=== PATIENT | female | born 1945 | race Caucasian/White ===

== ENCOUNTER → 2018-10-27 | Day surgery (SDC) | payer MEDICARE ==
[~2018-10-27] MED LIST: Acetaminophen/HYDROcodone 325-5 MG Tab PO PRN; Lactated Ringers 1,000 ML IV SCH; Midazolam 1 MG/ML 2 ML SDV ONE; Propofol 200 MG/20 ML SDV ONE; ceFAZolin 1 GM Vial ONE; ceFAZolin 1 GM in Sodium Chloride 0.9% 50 ML IV ONE; fentaNYL 100 MCG/2 ML SDV ONE
[2018-10-27 12:46] VITALS: BP 126/59
--- NOTE | 2018-10-28 07:33 | OR ---
DATE OF OPERATION: 10/27/2018 PREOPERATIVE DIAGNOSIS: Left carpal tunnel syndrome. POSTOPERATIVE DIAGNOSIS: Left carpal tunnel syndrome. PROCEDURE: Left carpal tunnel release. ANESTHESIA: [place] block. SURGEON: Charlie Elkins MD E TAILER: Christo Reddy RN. SPECIMENS: None. DRAINS: None. ESTIMATED BLOOD LOSS: Minimal. COMPLICATIONS: None apparent. DESCRIPTION OF PROCEDURE: After informed consent was obtained. The patient was brought to the operating room, where a Lauren block was performed uneventfully. The left upper extremity was prepped and draped sterilely. A time-out was held and the antibiotics were confirmed. An incision was made in line with the radial border of the ring finger from a line starting at Marie cardinal line to the volar wrist crease. We dissected sharply through the skin and subcutaneous tissue and palmar aponeurosis down onto the transverse carpal ligament. This was released in its entirety just off the radial border of hook of hamate. Distal aspect of the volar antebrachial fascia was released with tenotomies. We inspected the median nerve and the motor branch was intact and there were no space-occupying lesions. The incision was closed with #4-0 nylon, and sterile dressings were applied. KATHRINE/CONNER /[id number]
== END ==
LOC: LB.SDS 07:30
PROVIDERS: ATTEND Orthopaedic Surgery
DX: G56.02 Carpal tunnel syndrome, left upper limb (principal); I25.10 Atherosclerotic heart disease of native coronary artery without angina pectoris; I12.9 Hypertensive chronic kidney disease with stage 1 through stage 4 chronic kidney disease, or unspecified chronic kidney disease; E11.22 Type 2 diabetes mellitus with diabetic chronic kidney disease; N18.3 Chronic kidney disease, stage 3 (moderate); E11.3299 Type 2 diabetes mellitus with mild nonproliferative diabetic retinopathy without macular edema, unspecified eye; E03.9 Hypothyroidism, unspecified; E04.2 Nontoxic multinodular goiter; K21.9 Gastro-esophageal reflux disease without esophagitis; G25.81 Restless legs syndrome; G89.29 Other chronic pain; M54.5 Low back pain; M40.204 Unspecified kyphosis, thoracic region; E66.01 Morbid (severe) obesity due to excess calories; Z68.41 Body mass index [BMI] 40.0-44.9, adult; Z87.891 Personal history of nicotine dependence; Z79.82 Long term (current) use of aspirin; Z79.4 Long term (current) use of insulin; Z79.899 Other long term (current) drug therapy
CPT/HCPCS: 82962; J2250; J2704; J3010; J7120

== ENCOUNTER 2018-12-15 13:38 | Inpatient (IN) | payer MEDICARE ==
[2018-12-15] MEDS ORDERED: Acetaminophen 325 MG Tab PO PRN (15:23)
[2018-12-15] MEDS ORDERED: Insulin Aspart 100 Units/ML 3 ML Pen SUBCUT SCH (18:00)
[2018-12-15] MEDS: Insulin Aspart 100 Units/ML 3 ML Pen SUBCUT SCH (18:42)
[2018-12-15] MEDS ORDERED: Insulin Aspart 100 Units/ML 3 ML Pen SUBCUT ONE (18:45)
--- NOTE | 2018-12-15 19:02 | PCM.HP ---
H&P History of Present Illness - General Date of Service: 12/15/18 Admit Problem/Dx: Admission Diagnosis/Problem Admission Diagnosis/Problem Foot infection Source of Information: Patient, RN, Other (discharge orders and notes from [facility] [place]) History Limitations: Reports: No Limitations - History of Present Illness Initial Comments - Free Text/Narative: 73 yr female presents to [facility] program, S/P 5th toe metatarsal amputation and diabetic wound infection ( right lateral foot ulcer and gangrenous changes pre-op note), diabetes and high dose insulin, hypertension, hypothyroid, iron deficiency anemia, chronic pain and taking Methadone, and renal insufficiency. Pt had surgery last week and was discharged today to [facility]. She does have a dressing to the foot and drainage intact and will need daily dressing changes, PT and OT referral for evaluation and strengthening. Pt is alert and talkative and happy to be in home community. She is diabetic and is taking Levemir bid and short acting insulin tid. Diet for consistent carbohydrate, low sodium, and heart healthy diet. Orders for non- weight bearing, daily dressing change, (triple antibiotic, adaptic, gauze, kerlex, and THANG), drain intact and Tylenol for relief of pain and Levaquin for the wound infection. She is sitting in the wheelchair and elevating her leg at night. Return appointment, need to schedule within 7 days. Right Toe-Little Pain Score (Numeric/FACES): 0 - Related Data Allergies/Adverse Reactions: Allergies Allergy/AdvReac Type Severity Reaction Status Date / Time morphine [From MS Contin] Allergy Nausea and Verified 10/27/18 02:51 Vomiting sulfamethoxazole Allergy Other Verified 10/27/18 02:51 [From Septra] trimethoprim [From Febra] Allergy Other Verified 10/27/18 02:51 Home Medications: Home Meds Levothyroxine Sodium [Synthroid] 75 mcg PO ACBREAKFAST 11/15/14 [History] Insulin Aspart [NovoLOG] 60 unit SUBCUT TIDAC 03/21/15 [History] Insulin Detemir [Levemir Flextouch] 65 unit SQ BID 03/21/15 [History] Methadone HCl [Dolophine HCl] 10 mg PO BID 03/21/15 [History] Multivitamin [Multi-Vitamin Daily] 1 tab PO DAILY 03/21/15 [History] Calcium Carbonate/Vitamin D3 [Calcium 600 + Vit D Tablet] 1 each PO DAILY [History] Cholecalciferol (Vitamin D3) [Vitamin D3] 1,000 unit PO DAILY 10/27/18 [History] Furosemide 20 mg PO DAILY 10/27/18 [History] Losartan Potassium [Cozaar] 100 mg PO DAILY 10/27/18 [History] Methadone 5 mg PO DAILY 10/27/18 [History] amLODIPine [Norvasc] 5 mg PO DAILY 10/27/18 [History] Aspirin 81 mg PO DAILY 12/15/18 [History] Past Medical History HEENT History: Reports: Cataract, Macular Degeneration Other HEENT History: Diabetic eye problems Cardiovascular History: Reports: Hypertension Other Respiratory History: Cough Gastrointestinal History: Reports: None Other Genitourinary History: Chronic Renal Disease, Stage 3 Other OB/BYN History: 2 Musculoskeletal History: Reports: Amputation, Back Pain, Chronic, Osteoarthritis Other Musculoskeletal History: osteoarthritis in hands Endocrine/Metabolic History: Reports: Diabetes, Type II, Obesity/BMI 30+ Other Hematologic History: Familial Hyperlipidemia Other Immunologic History: sjogrens syndrome Other Dermatologic History: bruises easily - Infectious Disease History Infectious Disease History: Reports: Chicken Pox, Measles, Rubella - Past Surgical History HEENT Surgical History: Reports: Cataract Surgery Other HEENT Surgeries/Procedures: intravitreal injections Musculoskeletal Surgical History: Reports: Shoulder Surgery Other Musculoskeletal Surgeries/Procedures:: Trigger Finger Repair Social & Family History - Family History Family Medical History: Noncontributory - Caffeine Use Caffeine Use: Reports: Coffee, Soda, Tea H&P Review of Systems - Review of Systems: Review Of Systems: See Below General: Reports: No Symptoms HEENT: Reports: Glasses, Headaches (some occasional headache, refuses Tylenol at this time.) Pulmonary: Reports: No Symptoms Cardiovascular: Reports: No Symptoms Gastrointestinal: Reports: Constipation, Other (No BM since Saturday.). Denies: Abdominal Pain, Decreased Appetite, Nausea Genitourinary: Reports: No Symptoms Musculoskeletal: Reports: Other (States no pain to right foot.) Skin: Reports: Other (Dressing and thang wrap to right foot and lower leg, drain to foot) Psychiatric: Reports: Other (States some frustration with her condition.) Neurological: Reports: No Symptoms Exam - Exam Exam: See Below - Vital Signs Vital Signs: Last Vital Signs Temp 98.4 F 12/15/18 17:00 Pulse 73 12/15/18 17:00 Resp 16 12/15/18 17:00 BP 173/66 H 12/15/18 17:00 Pulse Ox 100 12/15/18 17:00 Weight: 210 lb 14.4 oz - Exam General: Alert, Oriented, Cooperative HEENT: Hearing Intact, Mucosa Moist & [place], Nares Patent, Pupils Equal Neck: Supple, Trachea Midline Lungs: Clear to Auscultation, Normal Respiratory Effort Cardiovascular: Regular Rate, Regular Rhythm GI/Abdominal Exam: Normal Bowel Sounds, Soft, Non-Tender (Female) Exam: Deferred Rectal (Female) Exam: Deferred Back Exam: Normal Inspection, Full Range of Motion Extremities: Other (Slight edema to lower extremities, nonpitting.). No: Leg Pain Peripheral Pulses: 2+: Dorsalis Pedis (L), Dorsalis Pedis (R) Skin: Warm, Dry, Other (Dressing intact to right foot and lower leg) Neuro Extensive - Mental Status: Alert, Oriented x3, Normal Mood/Affect, Normal Cognition Neuro Extensive - Motor, Sensory, Reflexes: Other (Uses wheelchair and is non weight bearing to right lower extremity) Psychiatric: Alert, Normal Affect, Normal Mood - Patient Data Lab Results Last 24 hrs: Laboratory Results - last 24 hr 12/15/18 Range/Units 16:17 POC Glucose 81 (74-110) mg/dL - Problem List (1) Foot infection SNOMED Code(s): 848614050 ICD Code: L08.9 - LOCAL INFECTION OF THE SKIN AND SUBCUTANEOUS TISSUE, UNSP Status: Acute Current Visit: Yes (2) Diabetes SNOMED Code(s): 00989647 ICD Code: E11.9 - TYPE 2 DIABETES MELLITUS WITHOUT COMPLICATIONS Status: Acute Current Visit: Yes (3) Weakness SNOMED Code(s): 16602318 ICD Code: R53.1 - WEAKNESS Status: Acute Current Visit: Yes Problem List Initiated/Reviewed/Updated: Yes Orders Last 24hrs: Active Orders 24 hr Category Date Time Status Patient Status [ADT] Routine ADT 12/15/18 15:06 Active Blood Glucose Check, Bedside [RC] QIDACANDBED Care 12/15/18 15:06 Active Dressing Change [Wound Care] [RC] DAILY Care 12/16/18 08:00 Active Oxygen Therapy [RC] PRN Care 12/15/18 15:06 Inactive Up With Assistance [RC] ASDIRECTED Care 12/15/18 15:06 Active VTE/DVT Education [RC] Per Unit Routine Care 12/15/18 15:06 Active Vital Signs [RC] PER UNIT ROUTINE Care 12/15/18 15:06 Active OT Evaluation and Treatment [CONS] Routine Cons 12/15/18 15:06 Active PT Evaluation and Treatment [CONS] Routine Cons 12/15/18 15:06 Active Consistent Carbohydrate Diet [DIET] Diet 12/15/18 Dinner Ordered Heart Healthy Diet [DIET] Diet 12/15/18 Dinner Ordered Low Sodium [Sodium Restricted Diet] [DIET] Diet 12/15/18 Dinner Ordered Acetaminophen [Tylenol] Med 12/15/18 15:23 Active 650 mg PO Q6H PRN Aspirin Med 12/16/18 08:00 Active 81 mg PO DAILY Bacitracin/Neomycin/Polymyxin [Triple Antibiotic Oint] Med 12/16/18 08:00 Active 1 each TOP DAILY Calcium Carbonate/Vitamin D3 [Caltrate 600+D 1500 MG- Med 12/16/18 07:00 Active 400 Units] 2 tab PO WITHBREAKFAST Cholecalciferol (Vitamin D3) [Vitamin D3] Med 12/16/18 08:00 Active 1,000 units PO DAILY Furosemide [Lasix] Med 12/16/18 08:00 Active 20 mg PO DAILY Insulin Aspart [NovoLOG] Med 12/15/18 18:30 Active 25 unit SUBCUT TIDMEALS Insulin Detemir [Levemir] Med 12/15/18 20:00 Active 65 unit SUBCUT BID Levothyroxine Med 12/16/18 07:00 Active 75 mcg PO ACBREAKFAST Losartan [Cozaar] Med 12/16/18 08:00 Active 100 mg PO DAILY Methadone Med 12/15/18 20:00 Active 10 mg PO BID Methadone Med 12/16/18 12:00 Active 5 mg PO DAILY@1200 Multivitamins w-Iron/Ca/FA/Min [Thera M Plus] Med 12/16/18 08:00 Active 1 tab PO DAILY amLODIPine [Norvasc] Med 12/16/18 08:00 Active 5 mg PO DAILY levoFLOXacin [Levaquin] Med 12/16/18 08:00 Active 500 mg PO DAILY Resuscitation Status Routine Resus Stat 12/15/18 15:06 Ordered Medication Orders Acetaminophen (Tylenol) 650 mg PO Q6H PRN PRN Reason: MILD Pain Amlodipine Besylate (Norvasc) 5 mg PO DAILY [facility] Aspirin (Aspirin) 81 mg PO DAILY [facility] Calcium Carbonate (Caltrate 600+D 1500 Mg-400 Units) 2 tab PO WITHBREAKFAST [facility] Cholecalciferol (Vitamin D3) 1,000 units PO DAILY [facility] Furosemide (Lasix) 20 mg PO DAILY [facility] Insulin Aspart (Novolog) 25 unit SUBCUT TIDMEALS [facility] Last Admin: 12/15/18 18:42 Dose: 25 units Insulin Detemir (Levemir) 65 unit SUBCUT BID [facility] Levofloxacin (Levaquin) 500 mg PO DAILY [facility] Stop: 12/29/18 08:01 Levothyroxine Sodium (Levothyroxine) 75 mcg PO ACBREAKFAST [facility] Losartan Potassium (Cozaar) 100 mg PO DAILY [facility] Methadone HCl (Methadone) 10 mg PO BID [facility] Methadone HCl (Methadone) 5 mg PO DAILY@1200 [facility] Multivitamins/Minerals (Thera M Plus) 1 tab PO DAILY [facility] Neomycin/Polymyxin/Bacitracin (Triple Antibiotic Oint) 1 each TOP DAILY [facility] Assessment/Plan Comment:: Admit with right foot infection, post op from Saturday, December 12, 2018, surgeon, Dr Harvey, podiatry. Pt does have diabetes and is taking Levemir and short acting insulin tid ac. Dry, dressing intact and drainage intact to right foot. Pt is non-weight bearing to the right foot and using the wheelchair to move from the bed to the bathroom. Daily dressing change to right foot: (J/P drain, triple antibiotic oint, adaptic, gauze, kerlix and Thang) Keep foot elevated. Levaquin PO daily. TID AC and hs blood glucose. Insulin as prescribed. Diet for consistent carbohydrate, low sodium, and heart healthy. PT and OT to evaluate and treat.
[2018-12-15] MEDS: Methadone 10 MG Tab PO SCH (20:02)
[2018-12-15] MEDS: Insulin Detemir 100 Units/ML 3 ML Pen SUBCUT SCH (21:24)
[2018-12-16] MEDS: Calcium Carbonate/Vitamin D3 1500 MG-400 Units Tab PO SCH (06:16)
[2018-12-16] MEDS: Levothyroxine 75 MCG Tab PO SCH (06:16)
[2018-12-16] MEDS: Multivitamins with Iron/Calcium/Folic Acid/Minerals Tab PO SCH (07:32)
[2018-12-16] MEDS: Levofloxacin 500 MG Tab PO SCH (07:32)
[2018-12-16] MEDS: Furosemide 20 MG Tab PO SCH (07:32)
[2018-12-16] MEDS: Cholecalciferol (Vitamin D3) 25 MCG Tab PO SCH (07:32)
[2018-12-16] MEDS: Bacitracin/Neomycin/Polymyxin B Oint 0.9 GM U/D Packet TOP SCH (07:32)
[2018-12-16] MEDS: Aspirin 81 MG Tab.Chew PO SCH (07:32)
[2018-12-16] MEDS: Losartan 50 MG Tab PO SCH (07:32)
[2018-12-16] MEDS: amLODIPine 5 MG Tab PO SCH (07:32)
[2018-12-16] MEDS: Methadone 10 MG Tab PO SCH ×3 (07:33→20:11)
[2018-12-16] MEDS ORDERED: Non-Formulary Medication 1 Each (Calcium Carbonate/Vitamin D3 [Calcium 600 + Vit D Tablet] PO SCH (08:00)
[2018-12-16] MEDS ORDERED: Non-Formulary Medication 1 Each (Multivitamin [Multi-Vitamin Daily] 1 TAB) PO SCH (08:00)
[2018-12-16] MEDS ORDERED: Non-Formulary Medication 1 Each (Losartan Potassium [Cozaar] 100 MG) PO SCH (08:00)
[2018-12-16] MEDS ORDERED: Non-Formulary Medication 1 Each (Cholecalciferol (Vitamin D3) [Vitamin D3] 1,000 UNIT) PO SCH (08:00)
[2018-12-16] MEDS: Insulin Detemir 100 Units/ML 3 ML Pen SUBCUT SCH ×2 (08:09→21:16)
[2018-12-16] MEDS: Insulin Aspart 100 Units/ML 3 ML Pen SUBCUT SCH ×3 (09:10→17:30)
[2018-12-16] MEDS ORDERED: Tuberculin, PPD 5 Units/0.1 ML 1 ML MDV IDERM ONE (11:12)
[2018-12-16] MEDS ORDERED: METHADONE 5 MG PO SCH (12:00)
[2018-12-16] MEDS: Insulin Aspart 100 Units/ML 3 ML Pen SUBCUT PRN (12:21)
[2018-12-17] MEDS: Levothyroxine 75 MCG Tab PO SCH (06:26)
[2018-12-17] MEDS: Calcium Carbonate/Vitamin D3 1500 MG-400 Units Tab PO SCH (06:27)
[2018-12-17] MEDS ORDERED: Losartan 50 MG Tab ONE (07:38)
[2018-12-17] MEDS: Aspirin 81 MG Tab.Chew PO SCH (07:45)
[2018-12-17] MEDS: Losartan 50 MG Tab PO SCH (07:45)
[2018-12-17] MEDS: Furosemide 20 MG Tab PO SCH (07:45)
[2018-12-17] MEDS: Methadone 10 MG Tab PO SCH ×3 (07:46→20:21)
[2018-12-17] MEDS: Levofloxacin 500 MG Tab PO SCH (07:46)
[2018-12-17] MEDS: Cholecalciferol (Vitamin D3) 25 MCG Tab PO SCH (07:47)
[2018-12-17] MEDS: amLODIPine 5 MG Tab PO SCH (07:47)
[2018-12-17] MEDS: Multivitamins with Iron/Calcium/Folic Acid/Minerals Tab PO SCH (07:47)
[2018-12-17] MEDS: Insulin Detemir 100 Units/ML 3 ML Pen SUBCUT SCH ×2 (08:03→21:47)
[2018-12-17] MEDS: Insulin Aspart 100 Units/ML 3 ML Pen SUBCUT SCH ×5 (08:06→17:24)
[2018-12-17] MEDS: Insulin Aspart 100 Units/ML 3 ML Pen SUBCUT PRN (08:07)
[2018-12-17] MEDS: Bacitracin/Neomycin/Polymyxin B Oint 0.9 GM U/D Packet TOP SCH (10:03)
[2018-12-18] MEDS: Levothyroxine 75 MCG Tab PO SCH (06:18)
[2018-12-18] MEDS: Aspirin 81 MG Tab.Chew PO SCH (08:39)
[2018-12-18] MEDS: Calcium Carbonate/Vitamin D3 1500 MG-400 Units Tab PO SCH (08:40)
[2018-12-18] MEDS: Losartan 50 MG Tab PO SCH (08:41)
[2018-12-18] MEDS: Furosemide 20 MG Tab PO SCH (08:41)
[2018-12-18] MEDS: Levofloxacin 500 MG Tab PO SCH (08:42)
[2018-12-18] MEDS: Methadone 10 MG Tab PO SCH ×3 (08:42→22:01)
[2018-12-18] MEDS: amLODIPine 5 MG Tab PO SCH (08:43)
[2018-12-18] MEDS: Cholecalciferol (Vitamin D3) 25 MCG Tab PO SCH (08:44)
[2018-12-18] MEDS: Multivitamins with Iron/Calcium/Folic Acid/Minerals Tab PO SCH (08:44)
[2018-12-18] MEDS: Insulin Aspart 100 Units/ML 3 ML Pen SUBCUT SCH ×6 (08:45→18:00)
[2018-12-18] MEDS: Insulin Detemir 100 Units/ML 3 ML Pen SUBCUT SCH ×2 (08:46→21:57)
[2018-12-18] MEDS: Bacitracin/Neomycin/Polymyxin B Oint 0.9 GM U/D Packet TOP SCH (10:30)
[2018-12-19] MEDS: Insulin Detemir 100 Units/ML 3 ML Pen SUBCUT SCH ×2 (08:49→20:07)
[2018-12-19] MEDS: Insulin Aspart 100 Units/ML 3 ML Pen SUBCUT SCH ×6 (08:52→17:24)
[2018-12-19] MEDS: Methadone 10 MG Tab PO SCH ×3 (08:56→20:08)
[2018-12-19] MEDS: Multivitamins with Iron/Calcium/Folic Acid/Minerals Tab PO SCH (08:57)
[2018-12-19] MEDS: amLODIPine 5 MG Tab PO SCH (08:57)
[2018-12-19] MEDS: Levofloxacin 500 MG Tab PO SCH (08:58)
[2018-12-19] MEDS: Losartan 50 MG Tab PO SCH (08:58)
[2018-12-19] MEDS: Aspirin 81 MG Tab.Chew PO SCH (08:58)
[2018-12-19] MEDS: Calcium Carbonate/Vitamin D3 1500 MG-400 Units Tab PO SCH (08:58)
[2018-12-19] MEDS: Cholecalciferol (Vitamin D3) 25 MCG Tab PO SCH (08:58)
[2018-12-19] MEDS: Levothyroxine 75 MCG Tab PO SCH (08:59)
[2018-12-19] MEDS: Furosemide 20 MG Tab PO SCH (08:59)
[2018-12-19] MEDS: Bacitracin/Neomycin/Polymyxin B Oint 0.9 GM U/D Packet TOP SCH (09:00)
[2018-12-19] MEDS ORDERED: Loperamide 2 MG Cap PO ONE (09:45)
[2018-12-20] MEDS: Levothyroxine 75 MCG Tab PO SCH (06:43)
[2018-12-20] MEDS: amLODIPine 5 MG Tab PO SCH (09:42)
[2018-12-20] MEDS: Bacitracin/Neomycin/Polymyxin B Oint 0.9 GM U/D Packet TOP SCH (09:42)
[2018-12-20] MEDS: Losartan 50 MG Tab PO SCH (09:43)
[2018-12-20] MEDS: Methadone 10 MG Tab PO SCH ×3 (09:43→19:57)
[2018-12-20] MEDS: Multivitamins with Iron/Calcium/Folic Acid/Minerals Tab PO SCH (09:43)
[2018-12-20] MEDS: Cholecalciferol (Vitamin D3) 25 MCG Tab PO SCH (09:43)
[2018-12-20] MEDS: Levofloxacin 500 MG Tab PO SCH (09:43)
[2018-12-20] MEDS: Calcium Carbonate/Vitamin D3 1500 MG-400 Units Tab PO SCH (09:44)
[2018-12-20] MEDS: Furosemide 20 MG Tab PO SCH (09:44)
[2018-12-20] MEDS: Aspirin 81 MG Tab.Chew PO SCH (09:44)
[2018-12-20] MEDS: Insulin Detemir 100 Units/ML 3 ML Pen SUBCUT SCH ×2 (10:01→20:05)
[2018-12-20] MEDS: Insulin Aspart 100 Units/ML 3 ML Pen SUBCUT SCH ×6 (10:02→17:15)
[2018-12-21] MEDS ORDERED: Loperamide 2 MG Cap PO PRN (00:17)
[2018-12-21] MEDS: Bacitracin/Neomycin/Polymyxin B Oint 0.9 GM U/D Packet TOP SCH (07:59)
[2018-12-21] MEDS: Losartan 50 MG Tab PO SCH (07:59)
[2018-12-21] MEDS: Levothyroxine 75 MCG Tab PO SCH (07:59)
[2018-12-21] MEDS: Levofloxacin 500 MG Tab PO SCH (08:00)
[2018-12-21] MEDS: Cholecalciferol (Vitamin D3) 25 MCG Tab PO SCH (08:00)
[2018-12-21] MEDS: Methadone 10 MG Tab PO SCH ×3 (08:00→20:17)
[2018-12-21] MEDS: amLODIPine 5 MG Tab PO SCH (08:00)
[2018-12-21] MEDS: Calcium Carbonate/Vitamin D3 1500 MG-400 Units Tab PO SCH (08:00)
[2018-12-21] MEDS: Multivitamins with Iron/Calcium/Folic Acid/Minerals Tab PO SCH (08:01)
[2018-12-21] MEDS: Insulin Detemir 100 Units/ML 3 ML Pen SUBCUT SCH ×2 (08:01→20:20)
[2018-12-21] MEDS: Aspirin 81 MG Tab.Chew PO SCH (08:01)
[2018-12-21] MEDS: Furosemide 20 MG Tab PO SCH (08:01)
[2018-12-21] MEDS: Insulin Aspart 100 Units/ML 3 ML Pen SUBCUT SCH ×6 (08:02→17:15)
[2018-12-21] MEDS: Lactobacillus Acidophilus/Lactobacillus Sporogenes (Probiotic) Tab PO SCH (13:46)
[2018-12-22] MEDS: amLODIPine 5 MG Tab PO SCH (08:37)
[2018-12-22] MEDS: Furosemide 20 MG Tab PO SCH (08:38)
[2018-12-22] MEDS: Calcium Carbonate/Vitamin D3 1500 MG-400 Units Tab PO SCH (08:38)
[2018-12-22] MEDS: Cholecalciferol (Vitamin D3) 25 MCG Tab PO SCH (08:38)
[2018-12-22] MEDS: Lactobacillus Acidophilus/Lactobacillus Sporogenes (Probiotic) Tab PO SCH (08:38)
[2018-12-22] MEDS: Methadone 10 MG Tab PO SCH ×3 (08:38→20:44)
[2018-12-22] MEDS: Aspirin 81 MG Tab.Chew PO SCH (08:38)
[2018-12-22] MEDS: Losartan 50 MG Tab PO SCH (08:39)
[2018-12-22] MEDS: Levothyroxine 75 MCG Tab PO SCH (08:39)
[2018-12-22] MEDS: Levofloxacin 500 MG Tab PO SCH (08:39)
[2018-12-22] MEDS: Multivitamins with Iron/Calcium/Folic Acid/Minerals Tab PO SCH (08:39)
[2018-12-22] MEDS: Insulin Aspart 100 Units/ML 3 ML Pen SUBCUT SCH ×6 (08:42→19:07)
[2018-12-22] MEDS: Insulin Detemir 100 Units/ML 3 ML Pen SUBCUT SCH ×2 (08:44→20:44)
[2018-12-22] MEDS: Bacitracin/Neomycin/Polymyxin B Oint 0.9 GM U/D Packet TOP SCH (08:51)
[2018-12-23] MEDS: Insulin Aspart 100 Units/ML 3 ML Pen SUBCUT SCH ×6 (08:10→17:57)
[2018-12-23] MEDS: Insulin Detemir 100 Units/ML 3 ML Pen SUBCUT SCH ×2 (08:10→20:30)
[2018-12-23] MEDS: Bacitracin/Neomycin/Polymyxin B Oint 0.9 GM U/D Packet TOP SCH (08:25)
[2018-12-23] MEDS: Levofloxacin 500 MG Tab PO SCH (08:26)
[2018-12-23] MEDS: amLODIPine 5 MG Tab PO SCH (08:26)
[2018-12-23] MEDS: Methadone 10 MG Tab PO SCH ×3 (08:26→20:26)
[2018-12-23] MEDS: Lactobacillus Acidophilus/Lactobacillus Sporogenes (Probiotic) Tab PO SCH (08:26)
[2018-12-23] MEDS: Furosemide 20 MG Tab PO SCH (08:26)
[2018-12-23] MEDS: Levothyroxine 75 MCG Tab PO SCH (08:27)
[2018-12-23] MEDS: Losartan 50 MG Tab PO SCH (08:27)
[2018-12-23] MEDS: Calcium Carbonate/Vitamin D3 1500 MG-400 Units Tab PO SCH (08:27)
[2018-12-23] MEDS: Cholecalciferol (Vitamin D3) 25 MCG Tab PO SCH (08:27)
[2018-12-23] MEDS: Multivitamins with Iron/Calcium/Folic Acid/Minerals Tab PO SCH (08:27)
[2018-12-23] MEDS: Aspirin 81 MG Tab.Chew PO SCH (08:27)
--- NOTE | 2018-12-23 18:04 | PCM.PN ---
- General Info Date of Service: 12/23/18 Admission Dx/Problem (Free Text): Admission Diagnosis/Problem Admission Diagnosis/Problem Foot infection Functional Status: Reports: Pain Controlled, Tolerating Diet, Urinating - Review of Systems General: Reports: No Symptoms HEENT: Reports: No Symptoms Pulmonary: Reports: No Symptoms Cardiovascular: Reports: No Symptoms Gastrointestinal: Reports: Other (diarrhea improved) Genitourinary: Reports: No Symptoms Musculoskeletal: Reports: Other (Working with PT/OT for strengthening.) Skin: Reports: Other (wound to foot is healing, pain when drain is touched.) Neurological: Reports: No Symptoms Psychiatric: Reports: No Symptoms - Patient Data Vitals - Most Recent: Last Vital Signs Temp 98.4 F 12/23/18 08:00 Pulse 90 12/23/18 08:00 Resp 16 12/23/18 08:00 BP 151/56 H 12/23/18 08:27 Pulse Ox 100 12/23/18 08:00 Weight - Most Recent: 210 lb Lab Results Last 24 Hours: Laboratory Results - last 24 hr 12/22/18 12/23/18 12/23/18 Range/Units 20:40 08:09 11:48 POC Glucose 246 H 136 H 191 H (74-110) mg/dL 12/23/18 Range/Units 16:59 POC Glucose 218 H (74-110) mg/dL Med Orders - Current: Current Medications Acetaminophen (Tylenol) 650 mg PO Q6H PRN PRN Reason: MILD Pain Amlodipine Besylate (Norvasc) 5 mg PO DAILY [facility] Last Admin: 12/23/18 08:26 Dose: 5 mg Aspirin (Aspirin) 81 mg PO DAILY [facility] Last Admin: 12/23/18 08:27 Dose: 81 mg Calcium Carbonate (Caltrate 600+D 1500 Mg-400 Units) 2 tab PO DAILY [facility] Last Admin: 12/23/18 08:27 Dose: 2 tab Cholecalciferol (Vitamin D3) 1,000 units PO DAILY [facility] Last Admin: 12/23/18 08:27 Dose: 1,000 units Furosemide (Lasix) 20 mg PO DAILY [facility] Last Admin: 12/23/18 08:26 Dose: 20 mg Insulin Aspart (Novolog) 25 unit SUBCUT TIDMEALS [facility] Last Admin: 12/23/18 17:55 Dose: 25 units Insulin Aspart (Novolog) 0 unit SUBCUT TIDMEALS [facility]; Protocol Last Admin: 12/23/18 17:57 Dose: 6 units Insulin Detemir (Levemir) 65 unit SUBCUT BID [facility] Last Admin: 12/23/18 08:10 Dose: 65 unit Lactobacillus Acidophilus (Acidolphilus Extra Strength) 1 tab PO DAILY [facility] Last Admin: 12/23/18 08:26 Dose: 1 tab Levofloxacin (Levaquin) 500 mg PO DAILY [facility] Stop: 12/29/18 08:01 Last Admin: 12/23/18 08:26 Dose: 500 mg Levothyroxine Sodium (Levothyroxine) 75 mcg PO ACBREAKFAST [facility] Last Admin: 12/23/18 08:27 Dose: 75 mcg Loperamide HCl (Imodium) 2 mg PO ASDIRECTED PRN PRN Reason: Diarrhea Last Admin: 12/21/18 00:29 Dose: 4 mg Losartan Potassium (Cozaar) 100 mg PO DAILY [facility] Last Admin: 12/23/18 08:27 Dose: 100 mg Methadone HCl (Methadone) 10 mg PO BID [facility] Last Admin: 12/23/18 08:26 Dose: 10 mg Methadone HCl (Methadone) 5 mg PO DAILY@1200 [facility] Last Admin: 12/23/18 12:15 Dose: 5 mg Multivitamins/Minerals (Thera M Plus) 1 tab PO DAILY [facility] Last Admin: 12/23/18 08:27 Dose: 1 tab Neomycin/Polymyxin/Bacitracin (Triple Antibiotic Oint) 1 each TOP DAILY [facility] Last Admin: 12/23/18 08:25 Dose: 1 each Discontinued Medications Calcium Carbonate (Caltrate 600+D 1500 Mg-400 Units) 2 tab PO WITHBREAKFAST [facility] Last Admin: 12/17/18 06:27 Dose: 2 tab Insulin Aspart (Novolog) 60 unit SUBCUT TIDMEALS [facility] Last Admin: 12/17/18 09:09 Dose: Not Given Insulin Aspart (Novolog) 0 unit SUBCUT ONETIME ONE; Protocol Stop: 12/15/18 18:46 Last Admin: 12/16/18 06:59 Dose: Not Given Insulin Aspart (Novolog) 0 unit SUBCUT TIDMEALS PRN; Protocol PRN Reason: Blood Glucose Last Admin: 12/17/18 08:07 Dose: 3 units Loperamide HCl (Imodium) 2 mg PO ONETIME ONE Stop: 12/19/18 09:46 Last Admin: 12/19/18 09:55 Dose: 2 mg Losartan Potassium (Cozaar) Confirm Administered Dose 50 mg .ROUTE .STK-MED ONE Stop: 12/17/18 07:39 Last Admin: 12/17/18 09:08 Dose: Not Given Tuberculin PPD (Aplisol) 5 unit IDERM ONETIME ONE Stop: 12/16/18 11:13 Last Admin: 12/16/18 14:41 Dose: 5 unit - Exam General: Alert, Oriented, Cooperative HEENT: Mucous Membr. Moist/[place] Neck: Supple, Trachea Midline Lungs: Clear to Auscultation, Normal Respiratory Effort Cardiovascular: Regular Rate, Regular Rhythm GI/Abdominal Exam: Normal Bowel Sounds, Soft, Non-Tender Extremities: Normal Range of Motion, Normal Capillary Refill, Other (Moving toes and ankle well, elevating right leg/foot and non-weight bearing to right foot/leg) Peripheral Pulses: 2+: Dorsalis Pedis (L), Dorsalis Pedis (R) Skin: Warm, Dry Wound/Incisions: Healing Well (Sutures are intact, Minimal drainage to J/P drain ( not enough to empty), No signs of infection noted. ) Psy/Mental Status: Alert, Normal Affect, Normal Mood - Problem List & Annotations (1) Foot infection SNOMED Code(s): 208475701 Code(s): L08.9 - LOCAL INFECTION OF THE SKIN AND SUBCUTANEOUS TISSUE, UNSP Status: Acute Current Visit: Yes (2) Diabetes SNOMED Code(s): 07879710 Code(s): E11.9 - TYPE 2 DIABETES MELLITUS WITHOUT COMPLICATIONS Status: Acute Current Visit: Yes (3) Weakness SNOMED Code(s): 37005408 Code(s): R53.1 - WEAKNESS Status: Acute Current Visit: Yes - Problem List Review Problem List Initiated/Reviewed/Updated: Yes - Plan Plan:: Admit with right foot infection, post op from Saturday, December 12, 2018, surgeon, Dr Harvey, podiatry. Pt does have diabetes and is taking Levemir and short acting insulin tid ac. Dry, dressing intact and drainage intact to right foot. Pt is non-weight bearing to the right foot and using the wheelchair to move from the bed to the bathroom. Daily dressing change to right foot: (J/P drain, triple antibiotic oint, adaptic, gauze, kerlix and Thang) Keep foot elevated. Levaquin PO daily. TID AC and hs blood glucose. Insulin as prescribed. Diet for consistent carbohydrate, low sodium, and heart healthy. PT and OT to evaluate and treat. 12-23-18 Sutures intact to wound, no drainage and no signs of infection noted. Pt drinking and eating well. Blood sugars have been stable with diet and insulin. Continue with PT/OT for strengthening. Possible discharge to home this week or next. Dressing change will be completed at home daily per . Recommend Outpatient PT visit for wound care twice weekly. Continue with scheduled visits with sleeping room cleaner for drain removal and suture removal.
[2018-12-24] MEDS: Aspirin 81 MG Tab.Chew PO SCH (08:19)
[2018-12-24] MEDS: Lactobacillus Acidophilus/Lactobacillus Sporogenes (Probiotic) Tab PO SCH (08:20)
[2018-12-24] MEDS: Furosemide 20 MG Tab PO SCH (08:20)
[2018-12-24] MEDS: Calcium Carbonate/Vitamin D3 1500 MG-400 Units Tab PO SCH (08:20)
[2018-12-24] MEDS: Multivitamins with Iron/Calcium/Folic Acid/Minerals Tab PO SCH (08:20)
[2018-12-24] MEDS: Levothyroxine 75 MCG Tab PO SCH (08:20)
[2018-12-24] MEDS: Levofloxacin 500 MG Tab PO SCH (08:20)
[2018-12-24] MEDS: Cholecalciferol (Vitamin D3) 25 MCG Tab PO SCH ×2 (08:21→09:52)
[2018-12-24] MEDS: Methadone 10 MG Tab PO SCH ×3 (08:21→20:08)
[2018-12-24] MEDS: Insulin Aspart 100 Units/ML 3 ML Pen SUBCUT SCH ×6 (08:22→17:21)
[2018-12-24] MEDS: Insulin Detemir 100 Units/ML 3 ML Pen SUBCUT SCH ×2 (08:23→20:08)
[2018-12-24] MEDS: amLODIPine 5 MG Tab PO SCH (08:24)
[2018-12-24] MEDS: Losartan 50 MG Tab PO SCH (08:30)
[2018-12-24] MEDS: Bacitracin/Neomycin/Polymyxin B Oint 0.9 GM U/D Packet TOP SCH (09:21)
[2018-12-24] MEDS ORDERED: Insulin Glargine,Human Rec. Analog 100 Units/ML 3 ML Pen ONE (20:29)
[2018-12-25] MEDS: Insulin Detemir 100 Units/ML 3 ML Pen SUBCUT SCH (08:26)
[2018-12-25] MEDS ORDERED: Insulin Glargine,Human Rec. Analog 100 Units/ML 3 ML Pen SUBCUT SCH (08:30)
[2018-12-25] MEDS: Insulin Aspart 100 Units/ML 3 ML Pen SUBCUT SCH ×3 (08:34→12:07)
[2018-12-25] MEDS: Levofloxacin 500 MG Tab PO SCH (08:40)
[2018-12-25] MEDS: Cholecalciferol (Vitamin D3) 25 MCG Tab PO SCH (08:40)
[2018-12-25] MEDS: Lactobacillus Acidophilus/Lactobacillus Sporogenes (Probiotic) Tab PO SCH (08:40)
[2018-12-25] MEDS: Losartan 50 MG Tab PO SCH (08:41)
[2018-12-25] MEDS: Multivitamins with Iron/Calcium/Folic Acid/Minerals Tab PO SCH (08:46)
[2018-12-25] MEDS: Calcium Carbonate/Vitamin D3 1500 MG-400 Units Tab PO SCH (08:46)
[2018-12-25] MEDS: Furosemide 20 MG Tab PO SCH (08:47)
[2018-12-25] MEDS: Aspirin 81 MG Tab.Chew PO SCH (08:48)
[2018-12-25] MEDS: Methadone 10 MG Tab PO SCH ×2 (08:48→12:08)
[2018-12-25 08:49] VITALS: BP 140/55
[2018-12-25] MEDS: Levothyroxine 75 MCG Tab PO SCH (08:49)
[2018-12-25] MEDS: amLODIPine 5 MG Tab PO SCH (08:49)
[2018-12-25] MEDS: Bacitracin/Neomycin/Polymyxin B Oint 0.9 GM U/D Packet TOP SCH (08:50)
--- NOTE | 2018-12-25 10:02 | PCM.DCSUM1 ---
Discharge Summary - Hospital Course HPI Initial Comments: 73 yr female admit to [facility] bed program, S/P 5th toe metatarsal amputation and diabetic wound infection, diabetes and high dose insulin, hypertension, hypothyroid, iron deficiency anemia, chronic pain ( taking Methadone) and renal insufficiency. She has a daily dressing change and J/P drain intact to bottom of right foot. is performing the dressing change daily and will need skilled nurse visits to change the dressing 1-2x/week. She is non-weight bearing to the right lower extremity. She is using the wheelchair. PT/OT has been working with her for strengthening and exercise. The dressing consists of triple antibiotic, adaptic, gauze,, kerlex, and ESTRELLA wrap. She is receiving Levaquin for the wound infection. She is taking Levemir bid and short acting insulin tidac. Please RTC, make an appointment next week. Return appointment to Dr Harvey, podiatry January 19 at 1:30 at local clinic, for suture removal and J/P drain removal. Diagnosis: Stroke: No - Discharge Data Discharge Date: 12/25/18 Discharge Disposition: Home, Self-Care 01 Condition: Good - Discharge Diagnosis/Problem(s) (1) Foot infection SNOMED Code(s): 420642679 ICD Code: L08.9 - LOCAL INFECTION OF THE SKIN AND SUBCUTANEOUS TISSUE, UNSP Status: Acute Current Visit: Yes (2) Diabetes SNOMED Code(s): 65090741 ICD Code: E11.9 - TYPE 2 DIABETES MELLITUS WITHOUT COMPLICATIONS Status: Acute Current Visit: Yes (3) Weakness SNOMED Code(s): 77649158 ICD Code: R53.1 - WEAKNESS Status: Acute Current Visit: Yes - Patient Summary/Data Consults: Consultations 12/15/18 15:06 OT Evaluation and Treatment [CONS] Routine Please Evaluate and Treat. OT Reason for Consult: Strengthening This query below is only for informational purposes and is not editable. PT Evaluation and Treatment [CONS] Routine Please Evaluate and Treat. PT Reason for Consult: Strengthening This query below is only for informational purposes and is not editable. - Patient Instructions Diet: Heart Healthy Diet, Low Sodium, Diabetic Diet Activity: Elevate Extremity, Non Weight Bearing Driving: Do Not Drive Wound/Incision Care: Keep Operative Site/Wound Site Clean and Dry, Change Dressing Daily Notify Provider of: Fever, Increased Pain, Swelling and Redness - Discharge Plan *PRESCRIPTION DRUG MONITORING PROGRAM REVIEWED*: Not Applicable *COPY OF PRESCRIPTION DRUG MONITORING REPORT IN PATIENT PAUL: Not Applicable Prescriptions/Med Rec: Acidophilus/Lactobac Spor [Acidolphilus X-Strength] 1 tab PO DAILY #30 tablet levoFLOXacin [Levaquin] 500 mg PO DAILY #4 tab Loperamide [Imodium] 2 mg PO ASDIRECTED PRN #10 cap PRN Reason: Diarrhea Home Medications: Home Meds Levothyroxine Sodium [Synthroid] 75 mcg PO ACBREAKFAST 11/15/14 [History] Insulin Detemir [Levemir Flextouch] 65 unit SQ BID 03/21/15 [History] Methadone HCl [Dolophine] 10 mg PO BID 03/21/15 [History] Multivitamin [Multi-Vitamin Daily] 1 tab PO DAILY 03/21/15 [History] Calcium Carbonate/Vitamin D3 [Calcium 600 + Vit D Tablet] 1 each PO DAILY [History] Cholecalciferol (Vitamin D3) [Vitamin D3] 1,000 unit PO DAILY 10/27/18 [History] Furosemide 20 mg PO DAILY 10/27/18 [History] Losartan Potassium [Cozaar] 100 mg PO DAILY 10/27/18 [History] Methadone 5 mg PO DAILY 10/27/18 [History] amLODIPine [Norvasc] 5 mg PO DAILY 10/27/18 [History] Aspirin 81 mg PO DAILY 12/15/18 [History] Acetaminophen [Tylenol] 650 mg PO Q6H PRN tablet 12/24/18 [Rx] Acidophilus/Lactobac Spor [Acidolphilus X-Strength] 1 tab PO DAILY #30 tablet [Rx] Bacitracin/Neomycin/Polymyxin [Triple Antibiotic Oint] 1 each TOP DAILY packet 12/24/18 [Rx] Insulin Aspart [NovoLOG] 25 unit SUBCUT TIDMEALS pen 12/24/18 [Rx] Loperamide [Imodium] 2 mg PO ASDIRECTED PRN #10 cap 12/24/18 [Rx] levoFLOXacin [Levaquin] 500 mg PO DAILY tablet 12/24/18 [Rx] levoFLOXacin [Levaquin] 500 mg PO DAILY #4 tab 12/24/18 [Rx] - Discharge Summary/Plan Comment DC Time >30 min.: Yes (Reviewed medications, discharge plan, homecare ref, daily drsg change) Discharge Summary/Plan Comment: Diabetic foot infection, s/p 5th toe metatarsal amputation of right foot: Daily dressing change. The dressing consists of triple antibiotic, adaptic, gauze,, kerlex, and ESTRELLA wrap. She is receiving Levaquin for the wound infection for four more days. She is taking Levemir bid and short acting insulin 25 units tid ac. Referral to visiting homecare skilled nurse visits through [facility] for 1-2 x/week. will do the dressing change on days opposite of homecare visits. Continue with non-weight bearing to right lower extremity and elevating leg on cushion. Protect feet from any injury. Please RTC, make an appointment next week with PCP. Return appointment to Dr Harvey, podiatry January 19 at 1:30 at local clinic, for suture removal and J/P drain removal. - General Info Date of Service: 12/25/18 Subjective Update: going home today, will do the dressing changes today, and daughter is coming to help for 2 weeks. Functional Status: Reports: Pain Controlled, Tolerating Diet, Urinating - Review of Systems General: Reports: No Symptoms HEENT: Reports: Glasses. Denies: Headaches, Sore Throat Pulmonary: Denies: Shortness of Breath, Cough, Wheezing Cardiovascular: Reports: No Symptoms Gastrointestinal: Reports: No Symptoms Genitourinary: Reports: No Symptoms Musculoskeletal: Reports: Other (Using foot elevation device at night. ) Skin: Reports: Other (dressing to right foot and small dressing to left great toe) Neurological: Reports: No Symptoms Psychiatric: Reports: No Symptoms - Patient Data Vitals - Most Recent: Last Vital Signs Temp 98.2 F 12/24/18 09:08 Pulse 93 12/24/18 09:08 Resp 18 12/24/18 09:08 BP 140/55 L 12/25/18 08:49 Pulse Ox 99 12/24/18 09:08 Weight - Most Recent: 210 lb Lab Results - Last 24 hrs: Laboratory Results - last 24 hr 12/24/18 12/24/18 12/24/18 Range/Units 12:05 17:18 20:06 POC Glucose 129 H 223 H 225 H (74-110) mg/dL 12/25/18 Range/Units 08:32 POC Glucose 209 H (74-110) mg/dL Med Orders - Current: Current Medications Acetaminophen (Tylenol) 650 mg PO Q6H PRN PRN Reason: MILD Pain Amlodipine Besylate (Norvasc) 5 mg PO DAILY [facility] Last Admin: 12/25/18 08:49 Dose: 5 mg Aspirin (Aspirin) 81 mg PO DAILY [facility] Last Admin: 12/25/18 08:48 Dose: 81 mg Calcium Carbonate (Caltrate 600+D 1500 Mg-400 Units) 2 tab PO DAILY [facility] Last Admin: 12/25/18 08:46 Dose: 2 tab Cholecalciferol (Vitamin D3) 25 mcg PO DAILY [facility] Last Admin: 12/25/18 08:40 Dose: 25 mcg Furosemide (Lasix) 20 mg PO DAILY [facility] Last Admin: 12/25/18 08:47 Dose: 20 mg Insulin Aspart (Novolog) 25 unit SUBCUT TIDMEALS [facility] Last Admin: 12/25/18 08:34 Dose: 25 units Insulin Aspart (Novolog) 0 unit SUBCUT TIDMEALS [facility]; Protocol Last Admin: 12/25/18 08:36 Dose: 6 units Insulin Glargine (Lantus Solostar) 65 units SUBCUT BID [facility] Last Admin: 12/25/18 08:51 Dose: 65 unit Lactobacillus Acidophilus (Acidolphilus Extra Strength) 1 tab PO DAILY [facility] Last Admin: 12/25/18 08:40 Dose: 1 tab Levofloxacin (Levaquin) 500 mg PO DAILY [facility] Stop: 12/29/18 08:01 Last Admin: 12/25/18 08:40 Dose: 500 mg Levothyroxine Sodium (Levothyroxine) 75 mcg PO ACBREAKFAST [facility] Last Admin: 12/25/18 08:49 Dose: 75 mcg Loperamide HCl (Imodium) 2 mg PO ASDIRECTED PRN PRN Reason: Diarrhea Last Admin: 12/21/18 00:29 Dose: 4 mg Losartan Potassium (Cozaar) 100 mg PO DAILY [facility] Last Admin: 12/25/18 08:41 Dose: 100 mg Methadone HCl (Methadone) 10 mg PO BID [facility] Last Admin: 12/25/18 08:48 Dose: 10 mg Methadone HCl (Methadone) 5 mg PO DAILY@1200 [facility] Last Admin: 12/24/18 12:14 Dose: 5 mg Multivitamins/Minerals (Thera M Plus) 1 tab PO DAILY [facility] Last Admin: 12/25/18 08:46 Dose: 1 tab Neomycin/Polymyxin/Bacitracin (Triple Antibiotic Oint) 1 each TOP DAILY [facility] Last Admin: 12/25/18 08:50 Dose: 1 each Discontinued Medications Calcium Carbonate (Caltrate 600+D 1500 Mg-400 Units) 2 tab PO WITHBREAKFAST [facility] Last Admin: 12/17/18 06:27 Dose: 2 tab Cholecalciferol (Vitamin D3) 1,000 mcg PO DAILY [facility] Last Admin: 12/24/18 09:52 Dose: Not Given Insulin Aspart (Novolog) 60 unit SUBCUT TIDMEALS [facility] Last Admin: 12/17/18 09:09 Dose: Not Given Insulin Aspart (Novolog) 0 unit SUBCUT ONETIME ONE; Protocol Stop: 12/15/18 18:46 Last Admin: 12/16/18 06:59 Dose: Not Given Insulin Aspart (Novolog) 0 unit SUBCUT TIDMEALS PRN; Protocol PRN Reason: Blood Glucose Last Admin: 12/17/18 08:07 Dose: 3 units Insulin Detemir (Levemir) 65 unit SUBCUT BID [facility] Last Admin: 12/25/18 08:26 Dose: Not Given Insulin Glargine (Lantus Solostar) Confirm Administered Dose 300 units .ROUTE .STK-MED ONE Stop: 12/24/18 20:30 Loperamide HCl (Imodium) 2 mg PO ONETIME ONE Stop: 12/19/18 09:46 Last Admin: 12/19/18 09:55 Dose: 2 mg Losartan Potassium (Cozaar) Confirm Administered Dose 50 mg .ROUTE .STK-MED ONE Stop: 12/17/18 07:39 Last Admin: 12/17/18 09:08 Dose: Not Given Tuberculin PPD (Aplisol) 5 unit IDERM ONETIME ONE Stop: 12/16/18 11:13 Last Admin: 12/16/18 14:41 Dose: 5 unit - Exam General: Reports: Alert, Oriented, Cooperative, No Acute Distress HEENT: Reports: Mucous Membr. Moist/[place] Neck: Reports: Supple, Trachea Midline Lungs: Reports: Clear to Auscultation, Normal Respiratory Effort Cardiovascular: Reports: Regular Rate, Regular Rhythm GI/Abdominal Exam: Normal Bowel Sounds, Soft, Non-Tender (Female) Exam: Deferred Rectal (Female) Exam: Deferred Back Exam: Reports: Normal Inspection, Full Range of Motion Extremities: Non-Tender, Normal Capillary Refill, Other (mild edema to lower extremities) Skin: Reports: Warm, Dry Wound/Incisions: Reports: Healing Well, Dressing Dry and Intact, Other (drain intact to bottom of right foot.) Neurological: Reports: No New Focal Deficit Psy/Mental Status: Reports: Alert, Normal Affect, Normal Mood
[2018-12-25 13:25] VITALS: PULSE 82
== END 2018-12-25 16:51 | disposition home or self-care (01) | DRG 561 ==
LOC: LB.MS 13:38
PROVIDERS: ADMIT Nurse Practitioner Family; ATTEND Nurse Practitioner Family
DX: Z47.81 Encounter for orthopedic aftercare following surgical amputation (principal); Z89.421 Acquired absence of other right toe(s); E03.9 Hypothyroidism, unspecified; D50.9 Iron deficiency anemia, unspecified; G89.29 Other chronic pain; R53.1 Weakness; L08.9 Local infection of the skin and subcutaneous tissue, unspecified; E11.22 Type 2 diabetes mellitus with diabetic chronic kidney disease; I12.9 Hypertensive chronic kidney disease with stage 1 through stage 4 chronic kidney disease, or unspecified chronic kidney disease; N18.3 Chronic kidney disease, stage 3 (moderate); M54.9 Dorsalgia, unspecified; M19.042 Primary osteoarthritis, left hand; M19.041 Primary osteoarthritis, right hand; E66.9 Obesity, unspecified; E78.49 Other hyperlipidemia; M35.00 Sjogren syndrome, unspecified; Z79.4 Long term (current) use of insulin; Z79.891 Long term (current) use of opiate analgesic; Z79.890 Hormone replacement therapy; Z79.899 Other long term (current) drug therapy; Z79.82 Long term (current) use of aspirin
CPT/HCPCS: 82962; 86580; 97110-GO; 97110-GP; 97161-GP; 97165-GO; 97530-GO; 97530-GP; 97597-GP; A9270-GY; J1815-GY

== ENCOUNTER 2021-09-18 10:48 | Inpatient (IN) | payer MEDICARE ==
[2021-09-18] MEDS ORDERED: Acetaminophen 325 MG Tab PO PRN (17:01)
[2021-09-18] MEDS ORDERED: Polyethylene Glycol 3350 Powder 17 GM Packet PO PRN (17:12)
[2021-09-18] MEDS ORDERED: Ondansetron 4 MG Tab.DIS PO PRN (17:12)
[2021-09-18] MEDS ORDERED: Tuberculin, PPD 5 Units/0.1 ML 1 ML MDV IDERM ONE (17:20)
[2021-09-18] MEDS: Insulin Aspart 100 Units/ML 3 ML Pen SUBCUT SCH ×2 (17:49→18:07)
[2021-09-18] MEDS ORDERED: Carvedilol 3.125 MG Tab ONE (18:38)
[2021-09-18] MEDS: Carvedilol 3.125 MG Tab PO SCH (18:43)
[2021-09-18] MEDS: Methadone 10 MG Tab PO SCH (20:08)
[2021-09-18] MEDS: metroNIDAZOLE 500 MG Tab PO SCH (20:09)
[2021-09-18] MEDS: atorvaSTATin 20 MG Tab PO SCH (20:09)
[2021-09-18] MEDS: Cephalexin 500 MG Cap PO SCH (20:09)
[2021-09-18] MEDS: Insulin Glargine,Human Rec. Analog 100 Units/ML 3 ML Pen SUBCUT SCH (20:09)
[2021-09-19] MEDS: Calcium Carbonate/Vitamin D3 1500 MG-400 Units Tab PO SCH (08:03)
[2021-09-19] MEDS: Cephalexin 500 MG Cap PO SCH ×4 (08:03→20:16)
[2021-09-19] MEDS: Levothyroxine 100 MCG Tab PO SCH (08:03)
[2021-09-19] MEDS: Cholecalciferol (Vitamin D3) 2,000 Unit Cap PO SCH (08:03)
[2021-09-19] MEDS: Losartan 50 MG Tab PO SCH (08:03)
[2021-09-19] MEDS: Methadone 10 MG Tab PO SCH ×3 (08:04→20:14)
[2021-09-19] MEDS: Furosemide 20 MG Tab PO SCH (08:04)
[2021-09-19] MEDS: Carvedilol 3.125 MG Tab PO SCH ×2 (08:04→17:07)
[2021-09-19] MEDS: metroNIDAZOLE 500 MG Tab PO SCH ×4 (08:04→20:16)
[2021-09-19] MEDS: Lactobacillus Acidophilus/Lactobacillus Sporogenes (Probiotic) Tab PO SCH (08:04)
[2021-09-19] MEDS: Aspirin 81 MG Tab.EC PO SCH (08:04)
[2021-09-19] MEDS: amLODIPine 5 MG Tab PO SCH (08:05)
[2021-09-19] MEDS: Multivitamins with Iron/Calcium/Folic Acid/Minerals Tab PO SCH (08:07)
[2021-09-19] MEDS: Clopidogrel 75 MG Tab PO SCH (08:07)
[2021-09-19] MEDS: Insulin Glargine,Human Rec. Analog 100 Units/ML 3 ML Pen SUBCUT SCH ×2 (09:06→20:19)
[2021-09-19] MEDS: Insulin Aspart 100 Units/ML 3 ML Pen SUBCUT SCH ×6 (09:07→17:11)
[2021-09-19] MEDS: atorvaSTATin 20 MG Tab PO SCH (20:28)
[2021-09-20] MEDS: Levothyroxine 100 MCG Tab PO SCH (07:04)
[2021-09-20] MEDS: Calcium Carbonate/Vitamin D3 1500 MG-400 Units Tab PO SCH (08:11)
[2021-09-20] MEDS: Methadone 10 MG Tab PO SCH ×3 (08:11→19:37)
[2021-09-20] MEDS: Multivitamins with Iron/Calcium/Folic Acid/Minerals Tab PO SCH (08:12)
[2021-09-20] MEDS: Lactobacillus Acidophilus/Lactobacillus Sporogenes (Probiotic) Tab PO SCH (08:12)
[2021-09-20] MEDS: metroNIDAZOLE 500 MG Tab PO SCH ×4 (08:13→19:39)
[2021-09-20] MEDS: Aspirin 81 MG Tab.EC PO SCH (08:13)
[2021-09-20] MEDS: Cholecalciferol (Vitamin D3) 2,000 Unit Cap PO SCH (08:13)
[2021-09-20] MEDS: Furosemide 20 MG Tab PO SCH (08:13)
[2021-09-20] MEDS: Carvedilol 3.125 MG Tab PO SCH ×2 (08:13→17:30)
[2021-09-20] MEDS: Clopidogrel 75 MG Tab PO SCH (08:13)
[2021-09-20] MEDS: Cephalexin 500 MG Cap PO SCH ×4 (08:13→19:39)
[2021-09-20] MEDS: Losartan 50 MG Tab PO SCH (08:16)
[2021-09-20] MEDS: amLODIPine 5 MG Tab PO SCH (08:16)
[2021-09-20] MEDS: Insulin Glargine,Human Rec. Analog 100 Units/ML 3 ML Pen SUBCUT SCH ×2 (08:17→19:39)
[2021-09-20] MEDS: Insulin Aspart 100 Units/ML 3 ML Pen SUBCUT SCH ×6 (08:17→18:37)
[2021-09-20] MEDS: atorvaSTATin 20 MG Tab PO SCH (19:37)
[2021-09-21] MEDS: Levothyroxine 100 MCG Tab PO SCH (08:36)
[2021-09-21] MEDS: Carvedilol 3.125 MG Tab PO SCH ×2 (08:40→17:16)
[2021-09-21] MEDS: Aspirin 81 MG Tab.EC PO SCH (08:40)
[2021-09-21] MEDS: Cephalexin 500 MG Cap PO SCH ×4 (08:40→20:08)
[2021-09-21] MEDS: metroNIDAZOLE 500 MG Tab PO SCH ×4 (08:40→20:09)
[2021-09-21] MEDS: Losartan 50 MG Tab PO SCH (08:41)
[2021-09-21] MEDS: Furosemide 20 MG Tab PO SCH (08:41)
[2021-09-21] MEDS: Multivitamins with Iron/Calcium/Folic Acid/Minerals Tab PO SCH (08:41)
[2021-09-21] MEDS: Clopidogrel 75 MG Tab PO SCH (08:41)
[2021-09-21] MEDS: amLODIPine 5 MG Tab PO SCH (08:41)
[2021-09-21] MEDS: Calcium Carbonate/Vitamin D3 1500 MG-400 Units Tab PO SCH (08:42)
[2021-09-21] MEDS: Cholecalciferol (Vitamin D3) 2,000 Unit Cap PO SCH (09:02)
[2021-09-21] MEDS: Methadone 10 MG Tab PO SCH ×3 (09:07→20:07)
[2021-09-21] MEDS: Insulin Aspart 100 Units/ML 3 ML Pen SUBCUT SCH ×6 (09:08→17:17)
[2021-09-21] MEDS: Insulin Glargine,Human Rec. Analog 100 Units/ML 3 ML Pen SUBCUT SCH ×2 (09:09→20:10)
[2021-09-21] MEDS: Lactobacillus Acidophilus/Lactobacillus Sporogenes (Probiotic) Tab PO SCH (10:40)
[2021-09-21] MEDS: atorvaSTATin 20 MG Tab PO SCH (20:08)
[2021-09-22] MEDS: Levothyroxine 100 MCG Tab PO SCH (07:09)
[2021-09-22] MEDS: Methadone 10 MG Tab PO SCH ×3 (07:45→20:18)
[2021-09-22] MEDS: Aspirin 81 MG Tab.EC PO SCH (07:46)
[2021-09-22] MEDS: Carvedilol 3.125 MG Tab PO SCH ×2 (07:46→16:57)
[2021-09-22] MEDS: Calcium Carbonate/Vitamin D3 1500 MG-400 Units Tab PO SCH (07:46)
[2021-09-22] MEDS: Clopidogrel 75 MG Tab PO SCH (07:47)
[2021-09-22] MEDS: metroNIDAZOLE 500 MG Tab PO SCH ×4 (07:47→20:18)
[2021-09-22] MEDS: Cholecalciferol (Vitamin D3) 2,000 Unit Cap PO SCH (07:47)
[2021-09-22] MEDS: Losartan 50 MG Tab PO SCH (07:47)
[2021-09-22] MEDS: Furosemide 20 MG Tab PO SCH (07:47)
[2021-09-22] MEDS: Cephalexin 500 MG Cap PO SCH ×4 (07:47→20:18)
[2021-09-22] MEDS: Multivitamins with Iron/Calcium/Folic Acid/Minerals Tab PO SCH (07:47)
[2021-09-22] MEDS: amLODIPine 5 MG Tab PO SCH (07:47)
[2021-09-22] MEDS: Insulin Aspart 100 Units/ML 3 ML Pen SUBCUT SCH ×6 (08:00→17:16)
[2021-09-22] MEDS: Insulin Glargine,Human Rec. Analog 100 Units/ML 3 ML Pen SUBCUT SCH ×2 (08:07→20:20)
[2021-09-22] MEDS: Lactobacillus Acidophilus/Lactobacillus Sporogenes (Probiotic) Tab PO SCH (11:00)
[2021-09-22] MEDS: atorvaSTATin 20 MG Tab PO SCH (20:18)
[2021-09-23] MEDS: Levothyroxine 100 MCG Tab PO SCH (07:51)
[2021-09-23] MEDS: Insulin Glargine,Human Rec. Analog 100 Units/ML 3 ML Pen SUBCUT SCH ×2 (08:14→21:18)
[2021-09-23] MEDS: Insulin Aspart 100 Units/ML 3 ML Pen SUBCUT SCH ×6 (08:15→17:12)
[2021-09-23] MEDS: Calcium Carbonate/Vitamin D3 1500 MG-400 Units Tab PO SCH (08:17)
[2021-09-23] MEDS: Methadone 10 MG Tab PO SCH ×3 (08:17→20:55)
[2021-09-23] MEDS: Furosemide 20 MG Tab PO SCH (08:17)
[2021-09-23] MEDS: metroNIDAZOLE 500 MG Tab PO SCH ×4 (08:17→20:55)
[2021-09-23] MEDS: Clopidogrel 75 MG Tab PO SCH (08:17)
[2021-09-23] MEDS: Aspirin 81 MG Tab.EC PO SCH (08:17)
[2021-09-23] MEDS: Carvedilol 3.125 MG Tab PO SCH ×2 (08:18→17:10)
[2021-09-23] MEDS: Cholecalciferol (Vitamin D3) 2,000 Unit Cap PO SCH (08:18)
[2021-09-23] MEDS: amLODIPine 5 MG Tab PO SCH (08:18)
[2021-09-23] MEDS: Multivitamins with Iron/Calcium/Folic Acid/Minerals Tab PO SCH (08:18)
[2021-09-23] MEDS: Cephalexin 500 MG Cap PO SCH ×4 (08:18→20:55)
[2021-09-23] MEDS: Losartan 50 MG Tab PO SCH (08:23)
[2021-09-23] MEDS: Lactobacillus Acidophilus/Lactobacillus Sporogenes (Probiotic) Tab PO SCH (10:42)
[2021-09-23] MEDS: atorvaSTATin 20 MG Tab PO SCH (20:55)
[2021-09-24] MEDS: Levothyroxine 100 MCG Tab PO SCH (06:02)
[2021-09-24] MEDS: amLODIPine 5 MG Tab PO SCH (07:41)
[2021-09-24] MEDS: Furosemide 20 MG Tab PO SCH (07:41)
[2021-09-24] MEDS: metroNIDAZOLE 500 MG Tab PO SCH ×4 (07:41→20:19)
[2021-09-24] MEDS: Calcium Carbonate/Vitamin D3 1500 MG-400 Units Tab PO SCH (07:41)
[2021-09-24] MEDS: Carvedilol 3.125 MG Tab PO SCH ×2 (07:41→17:10)
[2021-09-24] MEDS: Clopidogrel 75 MG Tab PO SCH (07:41)
[2021-09-24] MEDS: Aspirin 81 MG Tab.EC PO SCH (07:42)
[2021-09-24] MEDS: Methadone 10 MG Tab PO SCH ×3 (07:42→20:17)
[2021-09-24] MEDS: Losartan 50 MG Tab PO SCH (07:43)
[2021-09-24] MEDS: Cephalexin 500 MG Cap PO SCH ×4 (07:43→20:19)
[2021-09-24] MEDS: Multivitamins with Iron/Calcium/Folic Acid/Minerals Tab PO SCH (07:43)
[2021-09-24] MEDS: Cholecalciferol (Vitamin D3) 2,000 Unit Cap PO SCH (07:43)
[2021-09-24] MEDS: Insulin Aspart 100 Units/ML 3 ML Pen SUBCUT SCH ×6 (08:00→17:15)
[2021-09-24] MEDS: Insulin Glargine,Human Rec. Analog 100 Units/ML 3 ML Pen SUBCUT SCH ×2 (08:00→20:19)
[2021-09-24] MEDS: Lactobacillus Acidophilus/Lactobacillus Sporogenes (Probiotic) Tab PO SCH (12:16)
[2021-09-24] MEDS: atorvaSTATin 20 MG Tab PO SCH (20:19)
[2021-09-25] MEDS: Levothyroxine 100 MCG Tab PO SCH (07:14)
[2021-09-25] MEDS: Calcium Carbonate/Vitamin D3 1500 MG-400 Units Tab PO SCH (08:14)
[2021-09-25] MEDS: Clopidogrel 75 MG Tab PO SCH (08:15)
[2021-09-25] MEDS: Cholecalciferol (Vitamin D3) 2,000 Unit Cap PO SCH (08:15)
[2021-09-25] MEDS: Insulin Aspart 100 Units/ML 3 ML Pen SUBCUT SCH ×6 (08:15→17:12)
[2021-09-25] MEDS: Furosemide 20 MG Tab PO SCH (08:15)
[2021-09-25] MEDS: Multivitamins with Iron/Calcium/Folic Acid/Minerals Tab PO SCH (08:15)
[2021-09-25] MEDS: Methadone 10 MG Tab PO SCH ×3 (08:15→20:04)
[2021-09-25] MEDS: Losartan 50 MG Tab PO SCH (08:15)
[2021-09-25] MEDS: Insulin Glargine,Human Rec. Analog 100 Units/ML 3 ML Pen SUBCUT SCH ×2 (08:15→21:13)
[2021-09-25] MEDS: Aspirin 81 MG Tab.EC PO SCH (08:15)
[2021-09-25] MEDS: metroNIDAZOLE 500 MG Tab PO SCH ×4 (08:15→20:05)
[2021-09-25] MEDS: Carvedilol 3.125 MG Tab PO SCH ×2 (08:16→16:06)
[2021-09-25] MEDS: amLODIPine 5 MG Tab PO SCH (08:16)
[2021-09-25] MEDS: Cephalexin 500 MG Cap PO SCH ×4 (08:16→20:05)
[2021-09-25] MEDS: Lactobacillus Acidophilus/Lactobacillus Sporogenes (Probiotic) Tab PO SCH (10:05)
[2021-09-25] MEDS: atorvaSTATin 20 MG Tab PO SCH (20:04)
[2021-09-25] MEDS ORDERED: Warfarin 3 MG Tab ONE (20:05)
[2021-09-26] MEDS: Calcium Carbonate/Vitamin D3 1500 MG-400 Units Tab PO SCH (08:23)
[2021-09-26] MEDS: Furosemide 20 MG Tab PO SCH (08:24)
[2021-09-26] MEDS: Methadone 10 MG Tab PO SCH ×3 (08:24→19:29)
[2021-09-26] MEDS: Levothyroxine 100 MCG Tab PO SCH (08:24)
[2021-09-26] MEDS: Cholecalciferol (Vitamin D3) 2,000 Unit Cap PO SCH (08:24)
[2021-09-26] MEDS: Cephalexin 500 MG Cap PO SCH ×4 (08:24→19:30)
[2021-09-26] MEDS: Aspirin 81 MG Tab.EC PO SCH (08:24)
[2021-09-26] MEDS: Multivitamins with Iron/Calcium/Folic Acid/Minerals Tab PO SCH (08:24)
[2021-09-26] MEDS: metroNIDAZOLE 500 MG Tab PO SCH ×4 (08:24→19:29)
[2021-09-26] MEDS: Carvedilol 3.125 MG Tab PO SCH ×2 (08:25→17:10)
[2021-09-26] MEDS: amLODIPine 5 MG Tab PO SCH (08:26)
[2021-09-26] MEDS: Losartan 50 MG Tab PO SCH (08:26)
[2021-09-26] MEDS: Clopidogrel 75 MG Tab PO SCH (08:26)
[2021-09-26] MEDS: Insulin Aspart 100 Units/ML 3 ML Pen SUBCUT SCH ×6 (08:34→17:12)
[2021-09-26] MEDS: Insulin Glargine,Human Rec. Analog 100 Units/ML 3 ML Pen SUBCUT SCH ×2 (08:45→19:39)
[2021-09-26] MEDS: Lactobacillus Acidophilus/Lactobacillus Sporogenes (Probiotic) Tab PO SCH (10:28)
[2021-09-26] MEDS: atorvaSTATin 20 MG Tab PO SCH (19:30)
[2021-09-26] MEDS ORDERED: Insulin Glargine,Human Rec. Analog 100 Units/ML 3 ML Pen SUBCUT SCH (20:00)
[2021-09-27] MEDS: metroNIDAZOLE 500 MG Tab PO SCH ×4 (07:23→20:00)
[2021-09-27] MEDS: Carvedilol 3.125 MG Tab PO SCH ×2 (07:23→16:27)
[2021-09-27] MEDS: amLODIPine 5 MG Tab PO SCH (07:31)
[2021-09-27] MEDS: Multivitamins with Iron/Calcium/Folic Acid/Minerals Tab PO SCH (07:31)
[2021-09-27] MEDS: Aspirin 81 MG Tab.EC PO SCH (07:31)
[2021-09-27] MEDS: Clopidogrel 75 MG Tab PO SCH (07:32)
[2021-09-27] MEDS: Calcium Carbonate/Vitamin D3 1500 MG-400 Units Tab PO SCH (07:32)
[2021-09-27] MEDS: Cephalexin 500 MG Cap PO SCH ×4 (07:32→20:02)
[2021-09-27] MEDS: Furosemide 20 MG Tab PO SCH (07:32)
[2021-09-27] MEDS: Cholecalciferol (Vitamin D3) 2,000 Unit Cap PO SCH (07:32)
[2021-09-27] MEDS: Losartan 50 MG Tab PO SCH (07:32)
[2021-09-27] MEDS: Methadone 10 MG Tab PO SCH ×3 (07:32→20:05)
[2021-09-27] MEDS: Levothyroxine 100 MCG Tab PO SCH (07:33)
[2021-09-27] MEDS: Insulin Glargine,Human Rec. Analog 100 Units/ML 3 ML Pen SUBCUT SCH ×2 (08:05→20:03)
[2021-09-27] MEDS: Insulin Aspart 100 Units/ML 3 ML Pen SUBCUT SCH ×6 (08:10→17:11)
[2021-09-27] MEDS: Lactobacillus Acidophilus/Lactobacillus Sporogenes (Probiotic) Tab PO SCH (11:31)
[2021-09-27] MEDS: atorvaSTATin 20 MG Tab PO SCH (20:01)
[2021-09-28] MEDS: Furosemide 20 MG Tab PO SCH (07:48)
[2021-09-28] MEDS: metroNIDAZOLE 500 MG Tab PO SCH (07:48)
[2021-09-28] MEDS: Losartan 50 MG Tab PO SCH (07:48)
[2021-09-28] MEDS: Levothyroxine 100 MCG Tab PO SCH (07:48)
[2021-09-28] MEDS: Calcium Carbonate/Vitamin D3 1500 MG-400 Units Tab PO SCH (07:48)
[2021-09-28] MEDS: Cholecalciferol (Vitamin D3) 2,000 Unit Cap PO SCH (07:48)
[2021-09-28] MEDS: Methadone 10 MG Tab PO SCH (07:49)
[2021-09-28] MEDS: amLODIPine 5 MG Tab PO SCH (07:49)
[2021-09-28] MEDS: Carvedilol 3.125 MG Tab PO SCH (07:50)
[2021-09-28] MEDS: Aspirin 81 MG Tab.EC PO SCH (07:50)
[2021-09-28] MEDS: Clopidogrel 75 MG Tab PO SCH (07:50)
[2021-09-28] MEDS: Multivitamins with Iron/Calcium/Folic Acid/Minerals Tab PO SCH (07:50)
[2021-09-28] MEDS: Cephalexin 500 MG Cap PO SCH (07:53)
[2021-09-28] MEDS: Insulin Aspart 100 Units/ML 3 ML Pen SUBCUT SCH ×2 (08:24→08:34)
[2021-09-28] MEDS: Insulin Glargine,Human Rec. Analog 100 Units/ML 3 ML Pen SUBCUT SCH (08:25)
[2021-09-28] MEDS: Lactobacillus Acidophilus/Lactobacillus Sporogenes (Probiotic) Tab PO SCH (09:50)
[2021-09-28 10:32] VITALS: BP 151/66; PULSE 83
== END 2021-09-28 10:36 | disposition home or self-care (01) | DRG 948 ==
LOC: LB.MS 16:29
PROVIDERS: ADMIT Physician Assistant; ATTEND Physician Assistant
DX: R53.81 Other malaise (principal); E11.621 Type 2 diabetes mellitus with foot ulcer; E11.65 Type 2 diabetes mellitus with hyperglycemia; I10 Essential (primary) hypertension; Z20.822 Contact with and (suspected) exposure to COVID-19; Z79.4 Long term (current) use of insulin; Z79.899 Other long term (current) drug therapy; Z79.02 Long term (current) use of antithrombotics/antiplatelets; Z79.82 Long term (current) use of aspirin; Z89.422 Acquired absence of other left toe(s)
CPT/HCPCS: 36415; 82947; 85025; 86580; 97110-GO; 97110-GP; 97116-GP; 97161-GP; 97165-GO; 97530-GO; 97530-GP; 97535-GO; 99304; 99307; A9270-GY; J1815-GY; U0002

== ENCOUNTER 2021-10-02 13:29 | Inpatient (IN) | payer MEDICARE, OTHER ==
[2021-10-02] MEDS ORDERED: Acetaminophen 325 MG Tab PO PRN (15:29)
[2021-10-02] MEDS ORDERED: Insulin Aspart 100 Units/ML 3 ML Pen SUBCUT PRN (15:31)
[2021-10-02] MEDS ORDERED: Ondansetron 4 MG Tab.DIS PO PRN (15:34)
[2021-10-02] MEDS ORDERED: Polyethylene Glycol 3350 Powder 17 GM Packet PO PRN (15:37)
[2021-10-02] MEDS ORDERED: Nitroglycerin 0.4 MG Tab.SL SL PRN (15:40)
[2021-10-02] MEDS ORDERED: Sodium Chloride 0.9% 10 ML Syringe FLUSH PRN (15:44)
[2021-10-02] MEDS: Ertapenem 1 GM in Sodium Chloride 0.9% 50 ML IV SCH (16:51)
[2021-10-02] MEDS ORDERED: Tuberculin, PPD 5 Units/0.1 ML 1 ML MDV IDERM ONE (17:11)
[2021-10-02] MEDS: Carvedilol 3.125 MG Tab PO SCH (17:19)
[2021-10-02] MEDS: Insulin Aspart 100 Units/ML 3 ML Pen SUBCUT SCH (17:41)
[2021-10-02] MEDS: Methadone 10 MG Tab PO SCH (20:00)
[2021-10-02] MEDS: Insulin Glargine,Human Rec. Analog 100 Units/ML 3 ML Pen SUBCUT SCH (20:32)
[2021-10-03] MEDS: Levothyroxine 100 MCG Tab PO SCH (07:12)
[2021-10-03] MEDS: Calcium Carbonate/Vitamin D3 1500 MG-400 Units Tab PO SCH (08:04)
[2021-10-03] MEDS: Aspirin 81 MG Tab.Chew PO SCH (08:04)
[2021-10-03] MEDS: Losartan 50 MG Tab PO SCH (08:05)
[2021-10-03] MEDS: Carvedilol 3.125 MG Tab PO SCH ×2 (08:05→17:24)
[2021-10-03] MEDS: Insulin Glargine,Human Rec. Analog 100 Units/ML 3 ML Pen SUBCUT SCH ×2 (08:06→19:25)
[2021-10-03] MEDS: amLODIPine 5 MG Tab PO SCH (08:08)
[2021-10-03] MEDS: Multivitamins with Iron/Calcium/Folic Acid/Minerals Tab PO SCH (08:08)
[2021-10-03] MEDS: Methadone 10 MG Tab PO SCH ×3 (08:08→19:56)
[2021-10-03] MEDS: Cholecalciferol (Vitamin D3) 25 MCG Tab PO SCH (08:08)
[2021-10-03] MEDS: Clopidogrel 75 MG Tab PO SCH (08:08)
[2021-10-03] MEDS: atorvaSTATin 20 MG Tab PO SCH (08:08)
[2021-10-03] MEDS: Furosemide 20 MG Tab PO SCH (08:09)
[2021-10-03] MEDS: Insulin Aspart 100 Units/ML 3 ML Pen SUBCUT SCH ×3 (08:09→17:21)
[2021-10-03] MEDS: Ertapenem 1 GM in Sodium Chloride 0.9% 50 ML IV SCH (16:30)
[2021-10-04] MEDS: Levothyroxine 100 MCG Tab PO SCH (07:34)
[2021-10-04] MEDS: Calcium Carbonate/Vitamin D3 1500 MG-400 Units Tab PO SCH (07:57)
[2021-10-04] MEDS: Aspirin 81 MG Tab.Chew PO SCH (07:57)
[2021-10-04] MEDS: Carvedilol 3.125 MG Tab PO SCH ×2 (07:58→16:52)
[2021-10-04] MEDS: Furosemide 20 MG Tab PO SCH (07:58)
[2021-10-04] MEDS: Losartan 50 MG Tab PO SCH (07:58)
[2021-10-04] MEDS: Insulin Glargine,Human Rec. Analog 100 Units/ML 3 ML Pen SUBCUT SCH ×2 (07:59→20:25)
[2021-10-04] MEDS: Methadone 10 MG Tab PO SCH ×3 (07:59→20:23)
[2021-10-04] MEDS: atorvaSTATin 20 MG Tab PO SCH (07:59)
[2021-10-04] MEDS: amLODIPine 5 MG Tab PO SCH (08:00)
[2021-10-04] MEDS: Insulin Aspart 100 Units/ML 3 ML Pen SUBCUT SCH ×3 (08:00→17:16)
[2021-10-04] MEDS: Clopidogrel 75 MG Tab PO SCH (08:00)
[2021-10-04] MEDS: Cholecalciferol (Vitamin D3) 25 MCG Tab PO SCH (08:01)
[2021-10-04] MEDS: Multivitamins with Iron/Calcium/Folic Acid/Minerals Tab PO SCH (08:01)
[2021-10-04] MEDS: Ertapenem 1 GM in Sodium Chloride 0.9% 50 ML IV SCH (16:00)
[2021-10-05] MEDS: Levothyroxine 100 MCG Tab PO SCH (08:40)
[2021-10-05] MEDS: Methadone 10 MG Tab PO SCH ×3 (08:40→20:12)
[2021-10-05] MEDS: Aspirin 81 MG Tab.Chew PO SCH (08:40)
[2021-10-05] MEDS: Losartan 50 MG Tab PO SCH (08:41)
[2021-10-05] MEDS: Furosemide 20 MG Tab PO SCH (08:42)
[2021-10-05] MEDS: Clopidogrel 75 MG Tab PO SCH (08:44)
[2021-10-05] MEDS: Carvedilol 3.125 MG Tab PO SCH ×2 (08:44→17:14)
[2021-10-05] MEDS: Cholecalciferol (Vitamin D3) 25 MCG Tab PO SCH (08:44)
[2021-10-05] MEDS: Multivitamins with Iron/Calcium/Folic Acid/Minerals Tab PO SCH (08:44)
[2021-10-05] MEDS: amLODIPine 5 MG Tab PO SCH (08:45)
[2021-10-05] MEDS: atorvaSTATin 20 MG Tab PO SCH (08:45)
[2021-10-05] MEDS: Calcium Carbonate/Vitamin D3 1500 MG-400 Units Tab PO SCH (08:45)
[2021-10-05] MEDS: Insulin Aspart 100 Units/ML 3 ML Pen SUBCUT SCH ×3 (08:46→17:07)
[2021-10-05] MEDS: Insulin Glargine,Human Rec. Analog 100 Units/ML 3 ML Pen SUBCUT SCH ×2 (08:46→20:15)
[2021-10-05] MEDS: Ertapenem 1 GM in Sodium Chloride 0.9% 50 ML IV SCH (15:46)
[2021-10-06] MEDS: Levothyroxine 100 MCG Tab PO SCH (08:08)
[2021-10-06] MEDS: Multivitamins with Iron/Calcium/Folic Acid/Minerals Tab PO SCH (08:09)
[2021-10-06] MEDS: Aspirin 81 MG Tab.Chew PO SCH (08:09)
[2021-10-06] MEDS: Calcium Carbonate/Vitamin D3 1500 MG-400 Units Tab PO SCH (08:09)
[2021-10-06] MEDS: Losartan 50 MG Tab PO SCH (08:09)
[2021-10-06] MEDS: amLODIPine 5 MG Tab PO SCH (08:13)
[2021-10-06] MEDS: Clopidogrel 75 MG Tab PO SCH (08:13)
[2021-10-06] MEDS: atorvaSTATin 20 MG Tab PO SCH (08:13)
[2021-10-06] MEDS: Furosemide 20 MG Tab PO SCH (08:13)
[2021-10-06] MEDS: Carvedilol 3.125 MG Tab PO SCH ×2 (08:15→17:02)
[2021-10-06] MEDS: Cholecalciferol (Vitamin D3) 25 MCG Tab PO SCH (08:15)
[2021-10-06] MEDS: Insulin Glargine,Human Rec. Analog 100 Units/ML 3 ML Pen SUBCUT SCH ×2 (08:16→20:27)
[2021-10-06] MEDS: Methadone 10 MG Tab PO SCH ×3 (09:20→20:29)
[2021-10-06] MEDS: Insulin Aspart 100 Units/ML 3 ML Pen SUBCUT SCH ×3 (09:23→17:02)
[2021-10-06] MEDS: Ertapenem 1 GM in Sodium Chloride 0.9% 50 ML IV SCH (15:21)
[2021-10-07] MEDS: Levothyroxine 100 MCG Tab PO SCH (07:16)
[2021-10-07] MEDS: amLODIPine 5 MG Tab PO SCH (08:38)
[2021-10-07] MEDS: Aspirin 81 MG Tab.Chew PO SCH (08:39)
[2021-10-07] MEDS: Methadone 10 MG Tab PO SCH ×3 (08:39→20:07)
[2021-10-07] MEDS: Cholecalciferol (Vitamin D3) 25 MCG Tab PO SCH (08:39)
[2021-10-07] MEDS: Carvedilol 3.125 MG Tab PO SCH ×2 (08:40→16:23)
[2021-10-07] MEDS: Clopidogrel 75 MG Tab PO SCH (08:40)
[2021-10-07] MEDS: Multivitamins with Iron/Calcium/Folic Acid/Minerals Tab PO SCH (08:40)
[2021-10-07] MEDS: Losartan 50 MG Tab PO SCH (08:40)
[2021-10-07] MEDS: Furosemide 20 MG Tab PO SCH (08:41)
[2021-10-07] MEDS: Calcium Carbonate/Vitamin D3 1500 MG-400 Units Tab PO SCH (08:41)
[2021-10-07] MEDS: Insulin Glargine,Human Rec. Analog 100 Units/ML 3 ML Pen SUBCUT SCH ×2 (08:41→20:09)
[2021-10-07] MEDS: atorvaSTATin 20 MG Tab PO SCH (08:41)
[2021-10-07] MEDS: Insulin Aspart 100 Units/ML 3 ML Pen SUBCUT SCH ×3 (08:48→18:21)
[2021-10-07] MEDS: Ertapenem 1 GM in Sodium Chloride 0.9% 50 ML IV SCH ×2 (15:57→15:58)
[2021-10-08] MEDS: Aspirin 81 MG Tab.Chew PO SCH (08:17)
[2021-10-08] MEDS: Levothyroxine 100 MCG Tab PO SCH (08:17)
[2021-10-08] MEDS: Calcium Carbonate/Vitamin D3 1500 MG-400 Units Tab PO SCH (08:18)
[2021-10-08] MEDS: Furosemide 20 MG Tab PO SCH (08:18)
[2021-10-08] MEDS: Multivitamins with Iron/Calcium/Folic Acid/Minerals Tab PO SCH (08:18)
[2021-10-08] MEDS: Cholecalciferol (Vitamin D3) 25 MCG Tab PO SCH (08:18)
[2021-10-08] MEDS: Clopidogrel 75 MG Tab PO SCH (08:18)
[2021-10-08] MEDS: Methadone 10 MG Tab PO SCH ×3 (08:19→20:24)
[2021-10-08] MEDS: atorvaSTATin 20 MG Tab PO SCH (08:20)
[2021-10-08] MEDS: amLODIPine 5 MG Tab PO SCH (08:24)
[2021-10-08] MEDS: Carvedilol 3.125 MG Tab PO SCH ×2 (08:24→17:20)
[2021-10-08] MEDS: Insulin Glargine,Human Rec. Analog 100 Units/ML 3 ML Pen SUBCUT SCH ×2 (08:25→20:27)
[2021-10-08] MEDS: Losartan 50 MG Tab PO SCH (08:25)
[2021-10-08] MEDS: Insulin Aspart 100 Units/ML 3 ML Pen SUBCUT SCH ×3 (08:29→17:22)
[2021-10-08] MEDS: Ertapenem 1 GM in Sodium Chloride 0.9% 50 ML IV SCH ×2 (16:04→16:05)
[2021-10-09] MEDS: amLODIPine 5 MG Tab PO SCH (07:48)
[2021-10-09] MEDS: Furosemide 20 MG Tab PO SCH (07:48)
[2021-10-09] MEDS: Levothyroxine 100 MCG Tab PO SCH (07:48)
[2021-10-09] MEDS: Multivitamins with Iron/Calcium/Folic Acid/Minerals Tab PO SCH (07:49)
[2021-10-09] MEDS: Methadone 10 MG Tab PO SCH ×3 (07:49→19:39)
[2021-10-09] MEDS: atorvaSTATin 20 MG Tab PO SCH (07:49)
[2021-10-09] MEDS: Carvedilol 3.125 MG Tab PO SCH ×2 (07:49→17:13)
[2021-10-09] MEDS: Losartan 50 MG Tab PO SCH (07:49)
[2021-10-09] MEDS: Clopidogrel 75 MG Tab PO SCH (07:50)
[2021-10-09] MEDS: Cholecalciferol (Vitamin D3) 25 MCG Tab PO SCH (07:50)
[2021-10-09] MEDS: Calcium Carbonate/Vitamin D3 1500 MG-400 Units Tab PO SCH (07:50)
[2021-10-09] MEDS: Aspirin 81 MG Tab.Chew PO SCH (07:50)
[2021-10-09] MEDS: Insulin Glargine,Human Rec. Analog 100 Units/ML 3 ML Pen SUBCUT SCH ×2 (07:52→19:41)
[2021-10-09] MEDS: Insulin Aspart 100 Units/ML 3 ML Pen SUBCUT SCH ×3 (07:54→17:14)
[2021-10-09] MEDS: Ertapenem 1 GM in Sodium Chloride 0.9% 50 ML IV SCH (16:00)
[2021-10-10] MEDS: Levothyroxine 100 MCG Tab PO SCH (07:15)
[2021-10-10] MEDS: Losartan 50 MG Tab PO SCH (07:34)
[2021-10-10] MEDS: Methadone 10 MG Tab PO SCH (07:34)
[2021-10-10] MEDS: Furosemide 20 MG Tab PO SCH (07:34)
[2021-10-10] MEDS: Multivitamins with Iron/Calcium/Folic Acid/Minerals Tab PO SCH (07:35)
[2021-10-10] MEDS: Carvedilol 3.125 MG Tab PO SCH (07:35)
[2021-10-10] MEDS: Clopidogrel 75 MG Tab PO SCH (07:35)
[2021-10-10] MEDS: Aspirin 81 MG Tab.Chew PO SCH (07:35)
[2021-10-10] MEDS: atorvaSTATin 20 MG Tab PO SCH (07:35)
[2021-10-10] MEDS: Cholecalciferol (Vitamin D3) 25 MCG Tab PO SCH (07:36)
[2021-10-10 07:37] VITALS: BP 172/66
[2021-10-10] MEDS: Calcium Carbonate/Vitamin D3 1500 MG-400 Units Tab PO SCH (07:37)
[2021-10-10] MEDS: Insulin Aspart 100 Units/ML 3 ML Pen SUBCUT SCH (08:03)
[2021-10-10] MEDS: Insulin Glargine,Human Rec. Analog 100 Units/ML 3 ML Pen SUBCUT SCH (08:04)
[2021-10-10] MEDS: amLODIPine 5 MG Tab PO SCH (08:05)
[2021-10-10 09:29] VITALS: PULSE 99
== END 2021-10-10 10:10 | disposition home or self-care (01) | DRG 638 ==
LOC: LB.MS 14:50
PROVIDERS: ADMIT Surgery; ATTEND Surgery
DX: E11.69 Type 2 diabetes mellitus with other specified complication (principal); M86.8X7 Other osteomyelitis, ankle and foot; F11.20 Opioid dependence, uncomplicated; I25.10 Atherosclerotic heart disease of native coronary artery without angina pectoris; I10 Essential (primary) hypertension; E78.5 Hyperlipidemia, unspecified; Z20.822 Contact with and (suspected) exposure to COVID-19; Z89.422 Acquired absence of other left toe(s); Z79.82 Long term (current) use of aspirin; Z79.890 Hormone replacement therapy; Z79.899 Other long term (current) drug therapy; Z79.02 Long term (current) use of antithrombotics/antiplatelets; Z88.5 Allergy status to narcotic agent; Z88.2 Allergy status to sulfonamides; Z88.1 Allergy status to other antibiotic agents; E11.621 Type 2 diabetes mellitus with foot ulcer
CPT/HCPCS: 82947; 86580; 99305; 99315; A9270-GY; J1335; J1815-GY; U0002

== ENCOUNTER 2021-12-25 20:07 | Inpatient (IN) | payer MEDICARE ==
[2021-12-25] MEDS ORDERED: Sodium Chloride 0.9% 10 ML Syringe FLUSH PRN (20:16)
[2021-12-25] MEDS ORDERED: Ondansetron 4 MG/2 ML SDV IVPUSH ONE (20:17)
[2021-12-25] MEDS ORDERED: Insulin Aspart 100 Units/ML 3 ML Pen SUBCUT ONE (20:19)
[2021-12-25] MEDS ORDERED: 50% Dextrose in Water 50 ML Syringe IVPUSH PRN (20:19)
[2021-12-25] MEDS ORDERED: Glucagon,Human Recombinant 1 MG Vial IM PRN (20:19)
[2021-12-25] MEDS ORDERED: Sodium Chloride 0.9% 1,000 ML IV SCH (20:30)
[2021-12-25] MEDS ORDERED: Ondansetron 4 MG/2 ML SDV ONE (20:41)
[2021-12-25 21:33] LABS: ESTIMATED GFR 46 mL/min (>60)
[2021-12-25] MEDS ORDERED: Acetaminophen 325 MG Tab PO PRN (21:52)
[2021-12-25] MEDS ORDERED: ceFAZolin 1 GM Vial ONE (21:53)
[2021-12-25] MEDS ORDERED: ceFAZolin 1 GM in Premix Bag 1 BAG IV SCH (22:00)
[2021-12-26 02:30] VITALS: BP 155/51; PULSE 93
== END 2021-12-26 03:00 | DRG 603 ==
LOC: LB.ED 20:07 → LB.MS 21:52 → UNDOADMIN 22:33 → UNDODISIN 12-26 03:00
PROVIDERS: ADMIT Physician Assistant; ATTEND Physician Assistant
DX: L03.116 Cellulitis of left lower limb (principal); I12.9 Hypertensive chronic kidney disease with stage 1 through stage 4 chronic kidney disease, or unspecified chronic kidney disease; N18.30 Chronic kidney disease, stage 3 unspecified; E11.22 Type 2 diabetes mellitus with diabetic chronic kidney disease; E03.9 Hypothyroidism, unspecified; E66.9 Obesity, unspecified; E78.49 Other hyperlipidemia; Z20.822 Contact with and (suspected) exposure to COVID-19; I25.10 Atherosclerotic heart disease of native coronary artery without angina pectoris; Z68.35 Body mass index [BMI] 35.0-35.9, adult; Z79.899 Other long term (current) drug therapy; Z79.82 Long term (current) use of aspirin; Z98.42 Cataract extraction status, left eye; Z98.41 Cataract extraction status, right eye; Z90.89 Acquired absence of other organs; Z98.890 Other specified postprocedural states; Z79.4 Long term (current) use of insulin; Z89.432 Acquired absence of left foot; Z87.2 Personal history of diseases of the skin and subcutaneous tissue
CPT/HCPCS: 36415; 73700-LT; 80053; 81001; 82947; 83605; 83880; 84484; 85025; 93005; 96365; 96375; 99222; 99238; 99285-25; A0425; A0429; A9270-GY; J0690; J2405; U0002

== ENCOUNTER 2023-08-07 13:57 | Emergency (ER) | payer MEDICARE ==
[2023-08-07 14:15] VITALS: BP 147/61; PULSE 79
== END 2023-08-07 14:45 | disposition left against medical advice (07) ==
LOC: LB.ED 13:57
DX: Z53.21 Procedure and treatment not carried out due to patient leaving prior to being seen by health care provider (principal)

== ENCOUNTER 2024-01-12 18:22 | Emergency (ER) | payer MEDICARE ==
[2024-01-12 19:55] VITALS: BP 182/62; PULSE 80
== END 2024-01-12 19:30 | disposition home or self-care (01) ==
LOC: LB.ED 18:22
DX: Z48.816 Encounter for surgical aftercare following surgery on the genitourinary system (principal); I10 Essential (primary) hypertension; I25.10 Atherosclerotic heart disease of native coronary artery without angina pectoris; E11.9 Type 2 diabetes mellitus without complications; E66.9 Obesity, unspecified; Z68.42 Body mass index [BMI] 45.0-49.9, adult; Z79.899 Other long term (current) drug therapy; Z79.4 Long term (current) use of insulin; Z88.2 Allergy status to sulfonamides; Z88.5 Allergy status to narcotic agent; Z88.6 Allergy status to analgesic agent
CPT/HCPCS: 99282

== ENCOUNTER 2024-07-17 17:16 | Emergency (ER) | payer MEDICARE ==
[2024-07-17] MEDS: cefTRIAXone 1 GM Vial IM ONE ×3 (19:46→21:49)
[2024-07-17 21:52] VITALS: BP 163/64; PULSE 82
== END 2024-07-17 21:00 | disposition home or self-care (01) ==
LOC: LB.ED 17:16
DX: L03.116 Cellulitis of left lower limb (principal); I25.10 Atherosclerotic heart disease of native coronary artery without angina pectoris; I10 Essential (primary) hypertension; E11.9 Type 2 diabetes mellitus without complications; E03.9 Hypothyroidism, unspecified; E66.9 Obesity, unspecified; Z68.41 Body mass index [BMI] 40.0-44.9, adult; Z88.5 Allergy status to narcotic agent; Z88.8 Allergy status to other drugs, medicaments and biological substances; Z79.4 Long term (current) use of insulin; Z79.890 Hormone replacement therapy; Z79.899 Other long term (current) drug therapy
CPT/HCPCS: 96372; 99283; J0696

== ENCOUNTER 2024-08-10 18:16 | Emergency (ER) | payer MEDICARE ==
[2024-08-10] MEDS ORDERED: Sodium Chloride 0.9% 10 ML Syringe FLUSH PRN (18:50)
[2024-08-10] MEDS: cefTRIAXone 2 GM in Sodium Chloride 0.9% 100 ML IV ONE (19:13)
[2024-08-10 19:43] LABS: HEMATOCRIT 31.6 % (37.0-47.0); HEMOGLOBIN 10.2 g/dL (11.5-16.5); MEAN CORPUSCULAR HEMOGLOBIN 28.3 pg (27.0-32.0); MEAN CORPUSCULAR HGB CONC 32.3 g/dL (31.0-35.0); MEAN PLATELET VOLUME 10.7 fL (6.0-10.0); RED BLOOD CELL COUNT 3.61 M/uL (3.80-5.80); RED CELL DISTRIBUTION WIDTH 14.7 % (11.0-16.0); WHITE BLOOD CELL COUNT,WBC 4.9 K/uL (4.0-11.0)
[2024-08-10 19:56] LABS: ANION GAP 9.8 mmol/L (5.0-15.0); BUN/CREATININE RATIO 19.7 (6-25); C-REACTIVE PROTEIN 24.8 mg/L (<5.0); CALCIUM 10.1 mg/dL (8.5-10.1); CARBON DIOXIDE,CO2 27.8 mmol/L (21.0-32.0); CREATININE 1.73 mg/dL (0.55-1.02); EST CRCL DRUG DOSING (CG) 21.88 mL/min; POTASSIUM,K 4.6 mmol/L (3.5-5.1)
[2024-08-10] MEDS: Amoxicillin/Clavulanate K 875-125 MG Tab PO ONE (20:38)
[2024-08-10] MEDS: Amoxicillin/Clavulanate K 875-125 MG Tab ONE (20:46)
[2024-08-10] MEDS: Insulin Regular, Human 100 Units/ML 3 ML Vial IV ONE (20:47)
[2024-08-10 21:15] VITALS: BP 176/64; PULSE 87
== END 2024-08-10 20:50 | disposition home or self-care (01) ==
LOC: LB.ED 18:16
DX: L03.116 Cellulitis of left lower limb (principal); I10 Essential (primary) hypertension; I25.10 Atherosclerotic heart disease of native coronary artery without angina pectoris; E11.9 Type 2 diabetes mellitus without complications; E66.9 Obesity, unspecified; E03.9 Hypothyroidism, unspecified; Z79.899 Other long term (current) drug therapy; Z79.82 Long term (current) use of aspirin; Z79.4 Long term (current) use of insulin; Z79.890 Hormone replacement therapy; Z88.2 Allergy status to sulfonamides; Z88.5 Allergy status to narcotic agent; Z88.6 Allergy status to analgesic agent; Z68.41 Body mass index [BMI] 40.0-44.9, adult
CPT/HCPCS: 36415; 80048; 83036; 85027; 86140; 96365; 99283; 99283-25; A9270-GY; J0696

== ENCOUNTER 2024-10-03 19:07 | Emergency (ER) | payer MEDICARE ==
[2024-10-03] MEDS: cefTRIAXone 1 GM Vial IM ONE (20:16)
[2024-10-03] MEDS: Doxycycline 100 MG Cap PO ONE (20:16)
[2024-10-03 20:30] VITALS: PULSE 82
[2024-10-03] MEDS ORDERED: Doxycycline 100 MG Cap ONE (20:30)
[2024-10-03 21:04] VITALS: BP 168/62
== END 2024-10-03 20:57 | disposition home or self-care (01) ==
LOC: LB.ED 19:07
DX: L03.116 Cellulitis of left lower limb (principal); I25.10 Atherosclerotic heart disease of native coronary artery without angina pectoris; I10 Essential (primary) hypertension; E11.9 Type 2 diabetes mellitus without complications; E03.9 Hypothyroidism, unspecified; Z88.1 Allergy status to other antibiotic agents; Z88.8 Allergy status to other drugs, medicaments and biological substances; Z88.5 Allergy status to narcotic agent; Z79.4 Long term (current) use of insulin; Z79.82 Long term (current) use of aspirin; Z79.890 Hormone replacement therapy; Z79.899 Other long term (current) drug therapy
CPT/HCPCS: 96372; 99283; A9270; J0696

== ENCOUNTER 2024-11-29 20:12 | Emergency (ER) | payer MEDICARE, OTHER ==
[2024-11-29] MEDS ORDERED: Sodium Chloride 0.9% 10 ML Syringe FLUSH PRN (20:22)
[2024-11-29] MEDS: diazePAM 5 MG/ML MDV IVPUSH ONE (20:43)
[2024-11-29] MEDS: Cyclobenzaprine 5 MG Tab PO SCH (20:49)
[2024-11-29 20:55] LABS: HEMATOCRIT 26.2 % (37.0-47.0); HEMOGLOBIN 8.1 g/dL (11.5-16.5); MEAN CORPUSCULAR HEMOGLOBIN 26.2 pg (27.0-32.0); MEAN CORPUSCULAR HGB CONC 30.9 g/dL (31.0-35.0); MEAN PLATELET VOLUME 10.5 fL (6.0-10.0); RED BLOOD CELL COUNT 3.09 M/uL (3.80-5.80); WHITE BLOOD CELL COUNT,WBC 6.3 K/uL (4.0-11.0)
[2024-11-29] MEDS: Sodium Chloride 0.9% 1,000 ML IV ONE (21:10)
[2024-11-29 21:14] LABS: ANION GAP 11.7 mmol/L (5.0-15.0); BUN/CREATININE RATIO 26.4 (6-25); CALCIUM 10.7 mg/dL (8.5-10.1); CARBON DIOXIDE,CO2 27.3 mmol/L (21.0-32.0); CHLORIDE,CL 100 mmol/L (98-107); CREATININE 2.58 mg/dL (0.55-1.02); ESTIMATED GFR 19 mL/min (>60); MAGNESIUM 2.2 mg/dL (1.8-2.4); PRO B-TYPE NATRIUR PEPT,BNPPRO 230 pg/mL (0-450); SODIUM,NA 134 mmol/L (136-145)
[2024-11-29 21:16] LABS: GLUCOSE RANDOM 438 mg/dL (74-100)
[2024-11-29 21:17] LABS: BLOOD UREA NITROGEN,BUN 68 mg/dL (8-26); TROPONIN I HIGH SENSITIVITY 119.1 pg/ml (<=60.4)
[2024-11-29] MEDS ORDERED: Glucagon,Human Recombinant 1 MG Vial IM PRN (23:07)
[2024-11-29] MEDS ORDERED: 50% Dextrose in Water 50 ML Syringe IVPUSH PRN (23:07)
[2024-11-29] MEDS: Insulin Lispro 100 Unit/ML 3 ML KwikPen SUBCUT ONE (23:22)
[2024-11-30 09:20] LABS: ANION GAP 6.3 mmol/L (5.0-15.0); BUN/CREATININE RATIO 27.8 (6-25); CALCIUM 10.2 mg/dL (8.5-10.1); CARBON DIOXIDE,CO2 28.2 mmol/L (21.0-32.0); CREATININE 2.37 mg/dL (0.55-1.02); EST CRCL DRUG DOSING (CG) 15.97 mL/min; POTASSIUM,K 4.5 mmol/L (3.5-5.1)
[2024-11-30 09:23] LABS: TROPONIN I HIGH SENSITIVITY 24719.7 pg/ml (<=60.4)
[2024-11-30] MEDS: Heparin Sodium 5,000 Units/ML Vial IVPUSH ONE (09:32)
[2024-11-30] MEDS: Heparin Sodium/D5W 25,000 UNITS/500 ML BAG IV SCH (09:37)
[2024-11-30] MEDS: HYDROmorphone 1 MG/ML Syringe IVPUSH ONE (10:06)
[2024-11-30] MEDS ORDERED: Methadone 10 MG Tab PO SCH (11:30)
[2024-11-30] MEDS: Methadone 10 MG Tab PO ONE ×2 (12:02)
[2024-11-30] MEDS: atorvaSTATin 80 MG Tab PO ONE (13:37)
[2024-11-30] MEDS: Clopidogrel 75 MG Tab PO ONE (13:37)
[2024-11-30] MEDS: Metoprolol Tartrate 25 MG Tab PO ONE (13:37)
[2024-11-30 15:30] VITALS: BP 166/66; PULSE 76
[2024-12-01] MEDS ORDERED: Sodium Chloride 0.9% 1,000 ML IV ONE (21:10)
== END 2024-11-30 14:58 ==
LOC: LB.ED 20:12
DX: I12.9 Hypertensive chronic kidney disease with stage 1 through stage 4 chronic kidney disease, or unspecified chronic kidney disease (principal); N18.4 Chronic kidney disease, stage 4 (severe); I21.4 Non-ST elevation (NSTEMI) myocardial infarction; R79.89 Other specified abnormal findings of blood chemistry; N17.9 Acute kidney failure, unspecified; I25.10 Atherosclerotic heart disease of native coronary artery without angina pectoris; Z95.5 Presence of coronary angioplasty implant and graft; E03.9 Hypothyroidism, unspecified; E11.22 Type 2 diabetes mellitus with diabetic chronic kidney disease; Z88.0 Allergy status to penicillin; Z88.8 Allergy status to other drugs, medicaments and biological substances; Z88.5 Allergy status to narcotic agent; Z79.84 Long term (current) use of oral hypoglycemic drugs; Z79.890 Hormone replacement therapy; Z79.82 Long term (current) use of aspirin
CPT/HCPCS: 36415; 71045; 80048; 82947; 83735; 83880; 84484; 85027; 85379; 93005; 93010; 96361; 96365; 96366; 96375; 96376; 99285; 99285-25; A9270-GY; J1171; J1644; J1815; J3360; J7030

== ENCOUNTER 2024-12-09 10:37 | Inpatient (IN) | payer MEDICARE ==
[2024-12-09] MEDS ORDERED: Nitroglycerin 0.4 MG Tab.SL SL PRN (12:41)
[2024-12-09] MEDS ORDERED: 50% Dextrose in Water 50 ML Syringe IVPUSH PRN (13:08)
[2024-12-09] MEDS: Insulin Lispro 100 Unit/ML 3 ML KwikPen SUBCUT SCH (18:08)
[2024-12-09] MEDS: Insulin Glargine,Human Rec. Analog 100 Units/ML 3 ML Pen SUBCUT SCH (19:26)
[2024-12-09] MEDS: METHADONE 5 MG PO SCH (19:28)
[2024-12-09] MEDS: Tuberculin, PPD 5 Units/0.1 ML 1 ML MDV IDERM ONE (21:14)
[2024-12-10] MEDS: METHADONE 5 MG PO SCH (11:47)
[2024-12-10] MEDS: Nystatin Topical Powder 15 GM Bottle TOP PRN (14:17)
[2024-12-11 09:43] LABS: MEAN PLATELET VOLUME 10.3 fL (6.0-10.0); PLATELET COUNT,PLT 98.0 K/uL (150-500); RED BLOOD CELL COUNT 3.45 M/uL (3.80-5.80); RED CELL DISTRIBUTION WIDTH 14.1 % (11.0-16.0); WHITE BLOOD CELL COUNT,WBC 3.5 K/uL (4.0-11.0)
[2024-12-11 10:08] LABS: A/G RATIO 0.8 (0.8-2.0); ALANINE AMINOTRANSFERASE,ALT 23.0 U/L (12-78); ASPARTATE AMNIOTRANSFERASE,AST 41.0 U/L (15-37); BILIRUBIN TOTAL 0.8 mg/dL (0.0-1.0); CARBON DIOXIDE,CO2 25.8 mmol/L (21.0-32.0); CHLORIDE,CL 100.0 mmol/L (98-107); CREATININE 2.38 mg/dL (0.55-1.02); EST CRCL DRUG DOSING (CG) 15.66 mL/min; ESTIMATED GFR 21.0 mL/min (>60); GLUCOSE RANDOM 238.0 mg/dL (74-100); POTASSIUM,K 4.1 mmol/L (3.5-5.1); PROTEIN TOTAL,TP 6.7 g/dL (6.4-8.2); SODIUM,NA 135.0 mmol/L (136-145)
[2024-12-11 10:10] LABS: BLOOD UREA NITROGEN,BUN 69.0 mg/dL (8-26)
[2024-12-12] MEDS: Magnesium Hydroxide 400 MG/5 ML Susp 30 ML Cup PO PRN (18:10)
[2024-12-12] MEDS: Insulin Glargine,Human Rec. Analog 100 Units/ML 3 ML Pen SUBCUT SCH (19:26)
[2024-12-13 12:09] LABS: GLUCOSE,URINE 250 mg/dL (NEGATIVE); OCCULT BLOOD,URINE TRACE-INTACT (NEGATIVE)
[2024-12-13 12:13] LABS: APPEARANCE,URINE TURBID (CLEAR); WBC CLUMPS,URINE MANY /HPF
[2024-12-13 12:14] LABS: SQUAMOUS EPITHELIAL CELLS,UR OCCASIONAL /HPF
[2024-12-13] MEDS ORDERED: 50% Dextrose in Water 50 ML Syringe IVPUSH PRN (18:22)
[2024-12-13] MEDS: Insulin Glargine,Human Rec. Analog 100 Units/ML 3 ML Pen SUBCUT ONE (20:20)
[2024-12-14] MEDS: Lactobacillus Acidophilus/Lactobacillus Sporogenes (Probiotic) Tab PO SCH (09:40)
[2024-12-14 15:04] LABS: BASOPHILS ABSOLUTE AUTO 0.02 K/uL (0.02-0.10); BASOPHILS PERCENT AUTO 0.6 % (0.0-0.5); EOSINOPHILS ABSOLUTE AUTO 0.07 K/uL (0.04-0.40); EOSINOPHILS PERCENT AUTO 2.0 % (1.0-5.0); LYMPHOCYTES ABSOLUTE AUTO 0.97 K/uL (1.50-4.00); LYMPHOCYTES PERCENT AUTO 27.4 % (20.0-40.0); MEAN PLATELET VOLUME 10.2 fL (6.0-10.0); MONOCYTES ABSOLUTE AUTO 0.38 K/uL (0.20-0.80); MONOCYTES PERCENT AUTO 10.7 % (3.0-10.0); NEUTROPHILS ABSOLUTE AUTO 2.10 K/uL (2.00-7.50); NEUTROPHILS PERCENT AUTO 59.3 % (45.0-70.0); PLATELET COUNT,PLT 108 K/uL (150-500); RED BLOOD CELL COUNT 3.23 M/uL (3.80-5.80); RED CELL DISTRIBUTION WIDTH 14.1 % (11.0-16.0); WHITE BLOOD CELL COUNT,WBC 3.5 K/uL (4.0-11.0)
[2024-12-14 15:25] LABS: CARBON DIOXIDE,CO2 28.1 mmol/L (21.0-32.0); CHLORIDE,CL 100.0 mmol/L (98-107); CREATININE 2.42 mg/dL (0.55-1.02); EST CRCL DRUG DOSING (CG) 15.4 mL/min; ESTIMATED GFR 20.0 mL/min (>60); POTASSIUM,K 4.9 mmol/L (3.5-5.1); SODIUM,NA 131.0 mmol/L (136-145)
[2024-12-14 15:27] LABS: BLOOD UREA NITROGEN,BUN 55.0 mg/dL (8-26); GLUCOSE RANDOM 407.0 mg/dL (74-100)
[2024-12-14] MEDS ORDERED: 50% Dextrose in Water 50 ML Syringe IVPUSH PRN (21:21)
[2024-12-14] MEDS: Insulin Lispro 100 Unit/ML 3 ML KwikPen SUBCUT ONE (22:06)
[2024-12-14] MEDS: Insulin Glargine,Human Rec. Analog 100 Units/ML 3 ML Pen SUBCUT SCH (22:10)
[2024-12-15] MEDS: Sodium Phosphate,Monobasic/Sodium Phosphate,Dibasic Enema 133 ML Bottle RECTAL ONE (16:53)
[2024-12-15] MEDS ORDERED: Insulin Glargine,Human Rec. Analog 100 Units/ML 3 ML Pen SUBCUT ONE (20:00)
[2024-12-15] MEDS ORDERED: 50% Dextrose in Water 50 ML Syringe IVPUSH PRN (20:03)
[2024-12-15] MEDS: Insulin Glargine,Human Rec. Analog 100 Units/ML 3 ML Pen SUBCUT SCH (20:31)
[2024-12-15] MEDS: Insulin Lispro 100 Unit/ML 3 ML KwikPen SUBCUT ONE (20:32)
[2024-12-17] MEDS: Sennosides/Docusate Sodium 50-8.6 MG Tab PO SCH (08:12)
[2024-12-17] MEDS: Magnesium Citrate Solution 296 ML Bottle PO ONE (12:50)
[2024-12-21] MEDS ORDERED: BENIFIBER PO SCH ×2 (08:00→11:26)
[2024-12-21] MEDS: BENIFIBER PO SCH (13:02)
[2024-12-22] MEDS ORDERED: 50% Dextrose in Water 50 ML Syringe IVPUSH PRN ×2 (21:11→21:13)
[2024-12-23] MEDS: Insulin Glargine,Human Rec. Analog 100 Units/ML 3 ML Pen SUBCUT SCH ×2 (08:42→20:23)
[2024-12-23] MEDS: Tuberculin, PPD 5 Units/0.1 ML 1 ML MDV IDERM ONE (21:53)
[2024-12-24 10:00] LABS: BLOOD UREA NITROGEN,BUN 19.0 mg/dL (8-26); CARBON DIOXIDE,CO2 25.7 mmol/L (21.0-32.0); CHLORIDE,CL 101.0 mmol/L (98-107); CREATININE 1.77 mg/dL (0.55-1.02); EST CRCL DRUG DOSING (CG) 21.05 mL/min; ESTIMATED GFR 29.0 mL/min (>60); GLUCOSE RANDOM 257.0 mg/dL (74-100); POTASSIUM,K 4.3 mmol/L (3.5-5.1); SODIUM,NA 136.0 mmol/L (136-145)
[2024-12-24 10:54] VITALS: BP 162/63; PULSE 108
== END 2024-12-24 09:50 | disposition home or self-care (01) | DRG 947 ==
LOC: LB.MS 16:41
PROVIDERS: ADMIT Physician Assistant; ATTEND Physician Assistant
DX: R53.1 Weakness (principal); I21.4 Non-ST elevation (NSTEMI) myocardial infarction; Z68.41 Body mass index [BMI] 40.0-44.9, adult; N39.0 Urinary tract infection, site not specified; Z66 Do not resuscitate; H54.7 Unspecified visual loss; I25.10 Atherosclerotic heart disease of native coronary artery without angina pectoris; I10 Essential (primary) hypertension; M54.9 Dorsalgia, unspecified; G89.29 Other chronic pain; E03.9 Hypothyroidism, unspecified; M35.00 Sjogren syndrome, unspecified; R33.9 Retention of urine, unspecified; E11.22 Type 2 diabetes mellitus with diabetic chronic kidney disease; N32.0 Bladder-neck obstruction; K59.00 Constipation, unspecified; Z88.8 Allergy status to other drugs, medicaments and biological substances; Z89.9 Acquired absence of limb, unspecified; Z95.5 Presence of coronary angioplasty implant and graft; Z88.0 Allergy status to penicillin; Z91.048 Other nonmedicinal substance allergy status; Z88.2 Allergy status to sulfonamides; Z88.5 Allergy status to narcotic agent; Z88.6 Allergy status to analgesic agent; Z85.3 Personal history of malignant neoplasm of breast; Z85.42 Personal history of malignant neoplasm of other parts of uterus; Z98.49 Cataract extraction status, unspecified eye; Z98.890 Other specified postprocedural states; Z79.899 Other long term (current) drug therapy; Z79.82 Long term (current) use of aspirin; Z79.02 Long term (current) use of antithrombotics/antiplatelets; Z79.4 Long term (current) use of insulin; Z79.890 Hormone replacement therapy
CPT/HCPCS: 36415; 51701; 51702; 51703; 80048; 80053; 81001; 82947; 83605; 84550; 85025; 85027; 86580; 87086; 97110-GP; 97116-GP; 97161-GP; 97165-GO; 97530-GO; 97530-GP; 97535-GO; A9270-GY; C1758

== ENCOUNTER 2024-12-29 10:52 | Emergency (ER) | payer MEDICARE, OTHER ==
[2024-12-29 14:45] VITALS: BP 151/62; PULSE 100
== END 2024-12-29 12:30 | disposition home or self-care (01) ==
LOC: LB.ED 10:52
DX: S00.11XA Contusion of right eyelid and periocular area, initial encounter (principal); I25.10 Atherosclerotic heart disease of native coronary artery without angina pectoris; I10 Essential (primary) hypertension; Z95.5 Presence of coronary angioplasty implant and graft; E11.9 Type 2 diabetes mellitus without complications; E03.9 Hypothyroidism, unspecified; Z91.048 Other nonmedicinal substance allergy status; Z88.8 Allergy status to other drugs, medicaments and biological substances; Z88.2 Allergy status to sulfonamides; Z88.5 Allergy status to narcotic agent; Z79.82 Long term (current) use of aspirin; Z79.899 Other long term (current) drug therapy; Z79.4 Long term (current) use of insulin; Z79.890 Hormone replacement therapy; W01.198A Fall on same level from slipping, tripping and stumbling with subsequent striking against other object, initial encounter; Y93.89 Activity, other specified
CPT/HCPCS: 70450; 70486; 99283; 99284; A0425; A0428

== ENCOUNTER 2025-01-18 20:08 | Inpatient (IN) | payer MEDICARE ==
[2025-01-18 20:49] LABS: BASOPHILS ABSOLUTE AUTO 0.01 K/uL (0.02-0.10); BASOPHILS PERCENT AUTO 0.2 % (0.0-0.5); EOSINOPHILS ABSOLUTE AUTO 0.05 K/uL (0.04-0.40); EOSINOPHILS PERCENT AUTO 0.9 % (1.0-5.0); LYMPHOCYTES ABSOLUTE AUTO 0.47 K/uL (1.50-4.00); LYMPHOCYTES PERCENT AUTO 8.7 % (20.0-40.0); MEAN PLATELET VOLUME 10.7 fL (6.0-10.0); MONOCYTES ABSOLUTE AUTO 0.44 K/uL (0.20-0.80); MONOCYTES PERCENT AUTO 8.2 % (3.0-10.0); NEUTROPHILS ABSOLUTE AUTO 4.41 K/uL (2.00-7.50); NEUTROPHILS PERCENT AUTO 82.0 % (45.0-70.0); PLATELET COUNT,PLT 122 K/uL (150-500); RED BLOOD CELL COUNT 3.95 M/uL (3.80-5.80); RED CELL DISTRIBUTION WIDTH 15.2 % (11.0-16.0); WHITE BLOOD CELL COUNT,WBC 5.4 K/uL (4.0-11.0)
[2025-01-18 21:07] LABS: APPEARANCE,URINE SLIGHTLY CLOUDY (CLEAR); GLUCOSE,URINE >=1000 mg/dL (NEGATIVE); OCCULT BLOOD,URINE SMALL (NEGATIVE)
[2025-01-18 21:08] LABS: A/G RATIO 0.7 (0.8-2.0); ALANINE AMINOTRANSFERASE,ALT 28.0 U/L (12-78); ASPARTATE AMNIOTRANSFERASE,AST 48.0 U/L (15-37); BILIRUBIN TOTAL 0.8 mg/dL (0.0-1.0); BLOOD UREA NITROGEN,BUN 21.0 mg/dL (8-26); CARBON DIOXIDE,CO2 26.5 mmol/L (21.0-32.0); CHLORIDE,CL 100.0 mmol/L (98-107); CREATININE 1.83 mg/dL (0.55-1.02); EST CRCL DRUG DOSING (CG) 19.43 mL/min; ESTIMATED GFR 28.0 mL/min (>60); GLUCOSE RANDOM 348.0 mg/dL (74-100); POTASSIUM,K 3.9 mmol/L (3.5-5.1); PROTEIN TOTAL,TP 7.5 g/dL (6.4-8.2); SODIUM,NA 137.0 mmol/L (136-145)
[2025-01-18 21:12] LABS: SQUAMOUS EPITHELIAL CELLS,UR FEW /HPF; UROTHELIAL CELLS,URINE OCCASIONAL /HPF
[2025-01-18] MEDS ORDERED: Insuln Aspart Prot/Insulin Aspart 100 Units/ML 3 ML FlexPen SUBCUT SCH (22:32)
[2025-01-18] MEDS: Insulin NPH/Insulin Regular,Human 70-30 100 Units/ML 3 ML Pen SQ SCH (23:04)
[2025-01-18] MEDS: Insulin Glargine,Human Rec. Analog 100 Units/ML 3 ML Pen SUBCUT SCH (23:06)
[2025-01-19 05:29] LABS: MEAN PLATELET VOLUME 10.0 fL (6.0-10.0); PLATELET COUNT,PLT 106.0 K/uL (150-500); RED BLOOD CELL COUNT 3.51 M/uL (3.80-5.80); RED CELL DISTRIBUTION WIDTH 15.4 % (11.0-16.0); WHITE BLOOD CELL COUNT,WBC 4.1 K/uL (4.0-11.0)
[2025-01-19 05:38] LABS: BLOOD UREA NITROGEN,BUN 19.0 mg/dL (8-26); CARBON DIOXIDE,CO2 28.6 mmol/L (21.0-32.0); CHLORIDE,CL 105.0 mmol/L (98-107); CREATININE 1.54 mg/dL (0.55-1.02); EST CRCL DRUG DOSING (CG) 23.09 mL/min; ESTIMATED GFR 35.0 mL/min (>60); GLUCOSE RANDOM 217.0 mg/dL (74-100); POTASSIUM,K 3.8 mmol/L (3.5-5.1); SODIUM,NA 140.0 mmol/L (136-145)
[2025-01-19] MEDS ORDERED: Non-Formulary Medication 1 Each (Lactobacillus Acidophilus [Acidophilus] 1 EACH Tablet) PO SCH (08:00)
[2025-01-19] MEDS ORDERED: Non-Formulary Medication 1 Each (Aspirin [Aspirin] 81 MG Tab.Chew) PO SCH (08:00)
[2025-01-19] MEDS: Insulin Glargine,Human Rec. Analog 100 Units/ML 3 ML Pen SUBCUT SCH (08:05)
[2025-01-19] MEDS: Non-Formulary Medication 1 Each (Gabapentin [Neurontin] 100 MG Cap) PO SCH (10:14)
[2025-01-19] MEDS: METHADONE 10 MG PO SCH (10:14)
[2025-01-19] MEDS: Non-Formulary Medication 1 Each (Cyclobenzaprine Hcl [Cyclobenzaprine Hcl] 5 MG Tablet) PO SCH (10:14)
[2025-01-19] MEDS ORDERED: METHADONE 5 MG PO SCH (12:00)
[2025-01-19] MEDS: Lactobacillus Acidophilus/Lactobacillus Sporogenes (Probiotic) Tab PO SCH (12:00)
[2025-01-19] MEDS: Non-Formulary Medication 1 Each (Calcium Carbonate/Vitamin D3 [Calcium 600-Vit D3 400 Tabl PO SCH (15:28)
[2025-01-20] MEDS ORDERED: Non-Formulary Medication 1 Each (Levothyroxine [Levothyroxine] 112 MCG Tablet) PO SCH (07:00)
[2025-01-20] MEDS: Calcium Carbonate/Vitamin D3 1500 MG-400 Units Tab PO SCH (07:53)
[2025-01-22 12:10] VITALS: BP 154/70; PULSE 102
== END 2025-01-22 12:49 | disposition swing bed (61) | DRG 872 ==
LOC: LB.ED 20:08 → UNDOADMOB 21:45 → LB.MS 21:45 → OBSVTOIN 01-19 15:06
PROVIDERS: ADMIT Nurse Practitioner Family; ATTEND Nurse Practitioner Family
DX: A41.9 Sepsis, unspecified organism (principal); R53.1 Weakness; Z68.41 Body mass index [BMI] 40.0-44.9, adult; I10 Essential (primary) hypertension; N18.4 Chronic kidney disease, stage 4 (severe); E11.9 Type 2 diabetes mellitus without complications; L03.116 Cellulitis of left lower limb; Z88.0 Allergy status to penicillin; N30.01 Acute cystitis with hematuria; I13.0 Hypertensive heart and chronic kidney disease with heart failure and stage 1 through stage 4 chronic kidney disease, or unspecified chronic kidney disease; N17.9 Acute kidney failure, unspecified; Z91.048 Other nonmedicinal substance allergy status; Z66 Do not resuscitate; H54.7 Unspecified visual loss; I25.10 Atherosclerotic heart disease of native coronary artery without angina pectoris; M54.9 Dorsalgia, unspecified; G89.29 Other chronic pain; W19.XXXA Unspecified fall, initial encounter; Y92.001 Dining room of unspecified non-institutional (private) residence as the place of occurrence of the external cause; E11.22 Type 2 diabetes mellitus with diabetic chronic kidney disease; E03.9 Hypothyroidism, unspecified; E78.5 Hyperlipidemia, unspecified; E66.9 Obesity, unspecified; R00.0 Tachycardia, unspecified; R53.81 Other malaise; I50.9 Heart failure, unspecified; Z88.8 Allergy status to other drugs, medicaments and biological substances; Z95.5 Presence of coronary angioplasty implant and graft; Z88.6 Allergy status to analgesic agent; Z88.1 Allergy status to other antibiotic agents; Z88.2 Allergy status to sulfonamides; Z88.5 Allergy status to narcotic agent; Z79.899 Other long term (current) drug therapy; Z79.82 Long term (current) use of aspirin; Z79.891 Long term (current) use of opiate analgesic; Z79.890 Hormone replacement therapy; Z79.4 Long term (current) use of insulin; Z89.9 Acquired absence of limb, unspecified; Z85.3 Personal history of malignant neoplasm of breast; Z85.42 Personal history of malignant neoplasm of other parts of uterus; Z98.49 Cataract extraction status, unspecified eye; Z98.890 Other specified postprocedural states; I25.2 Old myocardial infarction
CPT/HCPCS: 36415; 51798; 80048; 80053; 81001; 82947; 83605; 83735; 84484; 85025; 85027; 87040; 87086; 93005; 93010; 96360; 96361; 96372; 96374; 97110-GP; 97161-GP; 97165-GO; 97530-GO; 97530-GP; 97535-GO; 99222; 99231; 99232; 99239; 99285-25; A0425; A0427; A9270-GY; G0378; J0696; J1650; J1815-GY; J7030

== ENCOUNTER 2025-01-22 12:34 | Inpatient (IN) | payer MEDICARE ==
[2025-01-22] MEDS ORDERED: 50% Dextrose in Water 50 ML Syringe IVPUSH PRN (12:51)
[2025-01-22] MEDS: Insulin NPH/Insulin Regular,Human 70-30 100 Units/ML 3 ML Pen SQ SCH ×2 (17:22→19:49)
[2025-01-22] MEDS: Insulin Glargine,Human Rec. Analog 100 Units/ML 3 ML Pen SUBCUT SCH (19:48)
[2025-01-22] MEDS: Tuberculin, PPD 5 Units/0.1 ML 1 ML MDV IDERM ONE (19:55)
[2025-01-23] MEDS: Calcium Carbonate/Vitamin D3 1500 MG-400 Units Tab PO SCH (08:02)
[2025-01-23] MEDS: Insulin Glargine,Human Rec. Analog 100 Units/ML 3 ML Pen SUBCUT SCH (08:30)
[2025-01-23] MEDS: Lactobacillus Acidophilus/Lactobacillus Sporogenes (Probiotic) Tab PO SCH (12:09)
[2025-01-23] MEDS: Sennosides/Docusate Sodium 50-8.6 MG Tab PO SCH (19:45)
[2025-01-25] MEDS: METHADONE 5 MG PO PRN (19:59)
[2025-01-26] MEDS: Insulin Glargine,Human Rec. Analog 100 Units/ML 3 ML Pen SUBCUT SCH (20:31)
[2025-01-29 11:35] VITALS: BP 165/71; PULSE 102
[2025-02-05] MEDS ORDERED: Tuberculin, PPD 5 Units/0.1 ML 1 ML MDV IDERM ONE (20:00)
== END 2025-01-29 12:34 | disposition home or self-care (01) | DRG 948 ==
LOC: LB.MS 12:49 → UNDOADMIN 12:49 → LB.MS 01-25 15:33
PROVIDERS: ADMIT Surgery; ATTEND Surgery
DX: R53.81 Other malaise (principal); Z68.41 Body mass index [BMI] 40.0-44.9, adult; L03.116 Cellulitis of left lower limb; N18.4 Chronic kidney disease, stage 4 (severe); H54.7 Unspecified visual loss; Z66 Do not resuscitate; I25.10 Atherosclerotic heart disease of native coronary artery without angina pectoris; M54.9 Dorsalgia, unspecified; G89.29 Other chronic pain; E03.9 Hypothyroidism, unspecified; E66.9 Obesity, unspecified; I12.9 Hypertensive chronic kidney disease with stage 1 through stage 4 chronic kidney disease, or unspecified chronic kidney disease; E11.22 Type 2 diabetes mellitus with diabetic chronic kidney disease; Z98.49 Cataract extraction status, unspecified eye; Z88.5 Allergy status to narcotic agent; Z88.0 Allergy status to penicillin; Z88.2 Allergy status to sulfonamides; Z89.9 Acquired absence of limb, unspecified; Z88.6 Allergy status to analgesic agent; I25.2 Old myocardial infarction; Z79.899 Other long term (current) drug therapy; Z79.890 Hormone replacement therapy; Z79.82 Long term (current) use of aspirin; Z79.4 Long term (current) use of insulin
CPT/HCPCS: 82947; 86580; 97110-GP; 97530-GO; 97535-GO; 99304; 99315; A9270-GY; J0696; J1650; J2003

== ENCOUNTER 2025-02-26 15:25 | Emergency (ER) | payer MEDICARE ==
[2025-02-26] MEDS ORDERED: Sodium Chloride 0.9% 10 ML Syringe FLUSH PRN (15:39)
[2025-02-26 16:28] LABS: BASOPHILS ABSOLUTE AUTO 0.03 K/uL (0.02-0.10); BASOPHILS PERCENT AUTO 0.4 % (0.0-0.5); EOSINOPHILS ABSOLUTE AUTO 0.03 K/uL (0.04-0.40); EOSINOPHILS PERCENT AUTO 0.4 % (1.0-5.0); LYMPHOCYTES ABSOLUTE AUTO 0.20 K/uL (1.50-4.00); LYMPHOCYTES PERCENT AUTO 2.5 % (20.0-40.0); MEAN PLATELET VOLUME 9.6 fL (6.0-10.0); MONOCYTES ABSOLUTE AUTO 0.43 K/uL (0.20-0.80); MONOCYTES PERCENT AUTO 5.4 % (3.0-10.0); NEUTROPHILS ABSOLUTE AUTO 7.25 K/uL (2.00-7.50); NEUTROPHILS PERCENT AUTO 91.3 % (45.0-70.0); PLATELET COUNT,PLT 175 K/uL (150-500); RED BLOOD CELL COUNT 4.51 M/uL (3.80-5.80); RED CELL DISTRIBUTION WIDTH 17.9 % (11.0-16.0); WHITE BLOOD CELL COUNT,WBC 7.9 K/uL (4.0-11.0)
[2025-02-26 16:37] LABS: GLUCOSE,URINE NEGATIVE (NEGATIVE); OCCULT BLOOD,URINE NEGATIVE (NEGATIVE)
[2025-02-26 16:44] LABS: APPEARANCE,URINE CLOUDY (CLEAR)
[2025-02-26 16:46] LABS: SQUAMOUS EPITHELIAL CELLS,UR FEW /HPF
[2025-02-26] MEDS: diphenhydrAMINE 50 MG/ML SDV IVPUSH ONE (16:51)
[2025-02-26 16:52] LABS: BLOOD UREA NITROGEN,BUN 14.0 mg/dL (8-26); CARBON DIOXIDE,CO2 27.6 mmol/L (21.0-32.0); CHLORIDE,CL 102.0 mmol/L (98-107); CREATININE 1.79 mg/dL (0.55-1.02); EST CRCL DRUG DOSING (CG) 20.82 mL/min; ESTIMATED GFR 29.0 mL/min (>60); GLUCOSE RANDOM 206.0 mg/dL (74-100); POTASSIUM,K 3.8 mmol/L (3.5-5.1); SODIUM,NA 139.0 mmol/L (136-145); TROPONIN I HIGH SENSITIVITY 45.5 pg/ml (<=60.4)
[2025-02-26] MEDS: Ondansetron 4 MG/2 ML SDV ONE (16:55)
[2025-02-26] MEDS: Ondansetron 4 MG/2 ML SDV IVPUSH ONE (17:01)
[2025-02-26 17:09] LABS: LACTIC ACID 3.1 mmol/L (0.4-2.0)
[2025-02-26 18:19] VITALS: BP 132/55; PULSE 114
== END 2025-02-26 18:30 | disposition home or self-care (01) ==
LOC: LB.ED 15:25
DX: T37.0X1A Poisoning by sulfonamides, accidental (unintentional), initial encounter (principal); I10 Essential (primary) hypertension; I25.10 Atherosclerotic heart disease of native coronary artery without angina pectoris; E11.9 Type 2 diabetes mellitus without complications; Z88.2 Allergy status to sulfonamides; Z88.8 Allergy status to other drugs, medicaments and biological substances; Z88.5 Allergy status to narcotic agent; Z79.899 Other long term (current) drug therapy; Z79.890 Hormone replacement therapy; Z79.4 Long term (current) use of insulin
CPT/HCPCS: 36415; 51702; 71045; 80048; 81001; 83605; 83735; 83880; 84484; 85025; 87040; 93005; 96361; 96374; 96375; 99284-25; A0425; A0429; J1200; J2405; J7030

== ENCOUNTER 2025-03-11 21:37 | Emergency (ER) | payer MEDICARE, OTHER ==
[2025-03-11 21:53] VITALS: PULSE 98
[2025-03-11] MEDS ORDERED: Sodium Chloride 0.9% 10 ML Syringe FLUSH PRN (22:08)
[2025-03-11 22:14] LABS: BASOPHILS ABSOLUTE AUTO 0.04 K/uL (0.02-0.10); BASOPHILS PERCENT AUTO 0.5 % (0.0-0.5); EOSINOPHILS ABSOLUTE AUTO 0.07 K/uL (0.04-0.40); EOSINOPHILS PERCENT AUTO 0.9 % (1.0-5.0); LYMPHOCYTES ABSOLUTE AUTO 0.78 K/uL (1.50-4.00); LYMPHOCYTES PERCENT AUTO 10.0 % (20.0-40.0); MEAN PLATELET VOLUME 9.2 fL (6.0-10.0); MONOCYTES ABSOLUTE AUTO 0.53 K/uL (0.20-0.80); MONOCYTES PERCENT AUTO 6.8 % (3.0-10.0); NEUTROPHILS ABSOLUTE AUTO 6.38 K/uL (2.00-7.50); NEUTROPHILS PERCENT AUTO 81.8 % (45.0-70.0); PLATELET COUNT,PLT 243 K/uL (150-500); RED BLOOD CELL COUNT 4.54 M/uL (3.80-5.80); RED CELL DISTRIBUTION WIDTH 18.1 % (11.0-16.0); WHITE BLOOD CELL COUNT,WBC 7.8 K/uL (4.0-11.0)
[2025-03-11 22:16] LABS: APPEARANCE,URINE CLEAR (CLEAR); GLUCOSE,URINE 100 mg/dL (NEGATIVE); OCCULT BLOOD,URINE NEGATIVE (NEGATIVE)
[2025-03-11 22:23] LABS: SQUAMOUS EPITHELIAL CELLS,UR FEW /HPF
[2025-03-11 22:31] LABS: A/G RATIO 0.5 (0.8-2.0); ALANINE AMINOTRANSFERASE,ALT 31.0 U/L (12-78); ASPARTATE AMNIOTRANSFERASE,AST 43.0 U/L (15-37); BILIRUBIN TOTAL 0.8 mg/dL (0.0-1.0); BLOOD UREA NITROGEN,BUN 18.0 mg/dL (8-26); CARBON DIOXIDE,CO2 23.3 mmol/L (21.0-32.0); CHLORIDE,CL 98.0 mmol/L (98-107); CREATININE 2.11 mg/dL (0.55-1.02); EST CRCL DRUG DOSING (CG) 16.85 mL/min; ESTIMATED GFR 24.0 mL/min (>60); GLUCOSE RANDOM 321.0 mg/dL (74-100); POTASSIUM,K 4.0 mmol/L (3.5-5.1); PROTEIN TOTAL,TP 7.1 g/dL (6.4-8.2); SODIUM,NA 131.0 mmol/L (136-145)
[2025-03-11 22:37] LABS: PRO B-TYPE NATRIUR PEPT,BNPPRO 232.0 pg/mL (0-450)
[2025-03-12] MEDS: Furosemide 40 MG/4 ML VIAL IVPUSH ONE (00:01)
[2025-03-12 01:34] VITALS: BP 150/67
== END 2025-03-12 01:56 ==
LOC: LB.ED 21:37
DX: A41.9 Sepsis, unspecified organism (principal); I10 Essential (primary) hypertension; E03.9 Hypothyroidism, unspecified; I25.10 Atherosclerotic heart disease of native coronary artery without angina pectoris; E66.9 Obesity, unspecified; E11.22 Type 2 diabetes mellitus with diabetic chronic kidney disease; N18.9 Chronic kidney disease, unspecified; R18.8 Other ascites; R65.20 Severe sepsis without septic shock; Z88.5 Allergy status to narcotic agent; Z88.8 Allergy status to other drugs, medicaments and biological substances; Z79.890 Hormone replacement therapy; Z79.899 Other long term (current) drug therapy; Z79.4 Long term (current) use of insulin
CPT/HCPCS: 36415; 43752; 51702; 71250; 74176; 80053; 81001; 82947; 83605; 83735; 83880; 84484; 85025; 87040; 93005; 93010; 96361; 96374; 99285; 99285-25; A0425; A0428; J1938; J7030

== ENCOUNTER 2025-03-18 10:21 | Inpatient (IN) | payer MEDICARE, OTHER ==
[2025-03-18] MEDS ORDERED: 50% Dextrose in Water 50 ML Syringe IVPUSH PRN (15:46)
[2025-03-18] MEDS ORDERED: Nitroglycerin 0.4 MG Tab.SL SL PRN (15:46)
[2025-03-18 16:28] LABS: INR 1.4 (1.0-3.5); PTT,PARTIAL THROMBOPLSTIN TIME 27.6 SECONDS (24.4-33.2)
[2025-03-18 16:30] LABS: A/G RATIO 0.8 (0.8-2.0); ALANINE AMINOTRANSFERASE,ALT 38.0 U/L (12-78); ASPARTATE AMNIOTRANSFERASE,AST 57.0 U/L (15-37); BILIRUBIN DIRECT 0.3 mg/dL (0.0-0.3); BILIRUBIN INDIRECT 0.5 mg/dL (<= 0.7); BILIRUBIN TOTAL 0.8 mg/dL (0.0-1.0); PROTEIN TOTAL,TP 7.0 g/dL (6.4-8.2)
[2025-03-18] MEDS ORDERED: METHADONE 10 MG PO SCH (20:00)
[2025-03-18] MEDS ORDERED: Lactulose Soln 10 GM/15 ML 15 ML UD Cup PO SCH (20:00)
[2025-03-18] MEDS: Insulin Glargine,Human Rec. Analog 100 Units/ML 3 ML Pen SUBCUT SCH (20:20)
[2025-03-18] MEDS: Tuberculin, PPD 5 Units/0.1 ML 1 ML MDV IDERM SCH (20:22)
[2025-03-19] MEDS: Diltiazem 180 MG Cap.CD PO SCH (07:43)
[2025-03-19] MEDS ORDERED: LIOTHYRONINE 5 MCG PO SCH (08:00)
[2025-03-19] MEDS ORDERED: Insulin Glargine,Human Rec. Analog 100 Units/ML 3 ML Pen SUBCUT SCH (08:00)
[2025-03-19 08:05] LABS: BASOPHILS ABSOLUTE AUTO 0.02 K/uL (0.02-0.10); BASOPHILS PERCENT AUTO 0.4 % (0.0-0.5); EOSINOPHILS ABSOLUTE AUTO 0.18 K/uL (0.04-0.40); EOSINOPHILS PERCENT AUTO 3.9 % (1.0-5.0); LYMPHOCYTES ABSOLUTE AUTO 1.25 K/uL (1.50-4.00); LYMPHOCYTES PERCENT AUTO 27.0 % (20.0-40.0); MEAN PLATELET VOLUME 9.4 fL (6.0-10.0); MONOCYTES ABSOLUTE AUTO 0.27 K/uL (0.20-0.80); MONOCYTES PERCENT AUTO 5.8 % (3.0-10.0); NEUTROPHILS ABSOLUTE AUTO 2.91 K/uL (2.00-7.50); NEUTROPHILS PERCENT AUTO 62.9 % (45.0-70.0); PLATELET COUNT,PLT 102 K/uL (150-500); RED BLOOD CELL COUNT 4.79 M/uL (3.80-5.80); RED CELL DISTRIBUTION WIDTH 18.4 % (11.0-16.0); WHITE BLOOD CELL COUNT,WBC 4.6 K/uL (4.0-11.0)
[2025-03-19 08:34] LABS: A/G RATIO 0.8 (0.8-2.0); ALANINE AMINOTRANSFERASE,ALT 39.0 U/L (12-78); ASPARTATE AMNIOTRANSFERASE,AST 60.0 U/L (15-37); BILIRUBIN TOTAL 0.9 mg/dL (0.0-1.0); BLOOD UREA NITROGEN,BUN 30.0 mg/dL (8-26); CARBON DIOXIDE,CO2 31.3 mmol/L (21.0-32.0); CHLORIDE,CL 101.0 mmol/L (98-107); CREATININE 1.78 mg/dL (0.55-1.02); EST CRCL DRUG DOSING (CG) 20.93 mL/min; ESTIMATED GFR 29.0 mL/min (>60); GLUCOSE RANDOM 67.0 mg/dL (74-100); PROTEIN TOTAL,TP 7.2 g/dL (6.4-8.2); SODIUM,NA 143.0 mmol/L (136-145)
[2025-03-19 08:39] LABS: POTASSIUM,K 2.6 mmol/L (3.5-5.1)
[2025-03-19] MEDS: Insulin Glargine,Human Rec. Analog 100 Units/ML 3 ML Pen SUBCUT SCH ×2 (09:42→19:34)
[2025-03-19] MEDS: Potassium Chloride 20 MEQ Tab.ER PO ONE ×2 (09:42→12:15)
[2025-03-19] MEDS ORDERED: METHADONE 5 MG PO SCH (12:00)
[2025-03-19] MEDS: Nystatin Topical Powder 15 GM Bottle TOP SCH (12:15)
[2025-03-21] MEDS: Bumetanide 2.5 MG/10 ML MDV IVPUSH ONE (15:54)
[2025-03-21] MEDS: Furosemide 40 MG/4 ML VIAL IVPUSH ONE (16:02)
[2025-03-23 09:03] LABS: A/G RATIO 0.7 (0.8-2.0); ALANINE AMINOTRANSFERASE,ALT 43.0 U/L (12-78); ASPARTATE AMNIOTRANSFERASE,AST 55.0 U/L (15-37); BILIRUBIN TOTAL 0.8 mg/dL (0.0-1.0); BLOOD UREA NITROGEN,BUN 39.0 mg/dL (8-26); CARBON DIOXIDE,CO2 28.3 mmol/L (21.0-32.0); CHLORIDE,CL 102.0 mmol/L (98-107); EST CRCL DRUG DOSING (CG) 11.83 mL/min; ESTIMATED GFR 15.0 mL/min (>60); GLUCOSE RANDOM 189.0 mg/dL (74-100); POTASSIUM,K 3.6 mmol/L (3.5-5.1); PROTEIN TOTAL,TP 6.5 g/dL (6.4-8.2); SODIUM,NA 138.0 mmol/L (136-145)
[2025-03-23 09:09] LABS: CREATININE 3.15 mg/dL (0.55-1.02)
[2025-03-24 08:41] LABS: A/G RATIO 0.9 (0.8-2.0); ALANINE AMINOTRANSFERASE,ALT 38.0 U/L (12-78); ASPARTATE AMNIOTRANSFERASE,AST 38.0 U/L (15-37); BILIRUBIN TOTAL 1.0 mg/dL (0.0-1.0); BLOOD UREA NITROGEN,BUN 36.0 mg/dL (8-26); CARBON DIOXIDE,CO2 29.2 mmol/L (21.0-32.0); CHLORIDE,CL 101.0 mmol/L (98-107); CREATININE 2.99 mg/dL (0.55-1.02); EST CRCL DRUG DOSING (CG) 12.46 mL/min; ESTIMATED GFR 16.0 mL/min (>60); GLUCOSE RANDOM 154.0 mg/dL (74-100); POTASSIUM,K 3.3 mmol/L (3.5-5.1); PROTEIN TOTAL,TP 6.9 g/dL (6.4-8.2); SODIUM,NA 139.0 mmol/L (136-145)
[2025-03-25 08:42] LABS: BLOOD UREA NITROGEN,BUN 35.0 mg/dL (8-26); CARBON DIOXIDE,CO2 29.7 mmol/L (21.0-32.0); CHLORIDE,CL 99.0 mmol/L (98-107); CREATININE 2.83 mg/dL (0.55-1.02); EST CRCL DRUG DOSING (CG) 13.17 mL/min; ESTIMATED GFR 17.0 mL/min (>60); GLUCOSE RANDOM 295.0 mg/dL (74-100); POTASSIUM,K 3.4 mmol/L (3.5-5.1); SODIUM,NA 136.0 mmol/L (136-145)
[2025-03-25] MEDS ORDERED: 50% Dextrose in Water 50 ML Syringe IVPUSH PRN (09:07)
[2025-03-25] MEDS: Insulin Lispro 100 Unit/ML 3 ML KwikPen SUBCUT SCH (12:02)
[2025-03-26 08:23] LABS: BLOOD UREA NITROGEN,BUN 34.0 mg/dL (8-26); CARBON DIOXIDE,CO2 28.4 mmol/L (21.0-32.0); CHLORIDE,CL 101.0 mmol/L (98-107); CREATININE 2.53 mg/dL (0.55-1.02); EST CRCL DRUG DOSING (CG) 14.73 mL/min; ESTIMATED GFR 19.0 mL/min (>60); GLUCOSE RANDOM 71.0 mg/dL (74-100); POTASSIUM,K 3.2 mmol/L (3.5-5.1); SODIUM,NA 140.0 mmol/L (136-145)
[2025-03-26] MEDS ORDERED: 50% Dextrose in Water 50 ML Syringe IVPUSH PRN (09:50)
[2025-03-26] MEDS: Potassium Chloride 20 MEQ Tab.ER PO SCH (11:43)
[2025-03-26] MEDS: Insulin Lispro 100 Unit/ML 3 ML KwikPen SUBCUT SCH (11:43)
[2025-03-27 09:10] LABS: BLOOD UREA NITROGEN,BUN 36.0 mg/dL (8-26); CARBON DIOXIDE,CO2 27.4 mmol/L (21.0-32.0); CHLORIDE,CL 99.0 mmol/L (98-107); CREATININE 2.7 mg/dL (0.55-1.02); EST CRCL DRUG DOSING (CG) 13.8 mL/min; ESTIMATED GFR 18.0 mL/min (>60); GLUCOSE RANDOM 317.0 mg/dL (74-100); POTASSIUM,K 4.2 mmol/L (3.5-5.1); SODIUM,NA 134.0 mmol/L (136-145)
[2025-03-27] MEDS: Insulin Lispro 100 Unit/ML 3 ML KwikPen SUBCUT SCH (18:41)
[2025-03-28 13:51] LABS: MEAN PLATELET VOLUME 10.5 fL (6.0-10.0); PLATELET COUNT,PLT 150.0 K/uL (150-500); RED BLOOD CELL COUNT 4.13 M/uL (3.80-5.80); RED CELL DISTRIBUTION WIDTH 18.4 % (11.0-16.0); WHITE BLOOD CELL COUNT,WBC 4.4 K/uL (4.0-11.0)
[2025-03-28 14:02] LABS: A/G RATIO 0.7 (0.8-2.0); ALANINE AMINOTRANSFERASE,ALT 35.0 U/L (12-78); ASPARTATE AMNIOTRANSFERASE,AST 57.0 U/L (15-37); BILIRUBIN TOTAL 0.9 mg/dL (0.0-1.0); BLOOD UREA NITROGEN,BUN 34.0 mg/dL (8-26); CARBON DIOXIDE,CO2 25.1 mmol/L (21.0-32.0); CHLORIDE,CL 99.0 mmol/L (98-107); CREATININE 2.67 mg/dL (0.55-1.02); EST CRCL DRUG DOSING (CG) 13.96 mL/min; ESTIMATED GFR 18.0 mL/min (>60); GLUCOSE RANDOM 307.0 mg/dL (74-100); POTASSIUM,K 5.6 mmol/L (3.5-5.1); PROTEIN TOTAL,TP 6.8 g/dL (6.4-8.2); SODIUM,NA 134.0 mmol/L (136-145)
[2025-03-28] MEDS: Miconazole 2% Crm 30 GM Tube TOP SCH (15:11)
[2025-03-29 09:12] LABS: BLOOD UREA NITROGEN,BUN 33.0 mg/dL (8-26); CARBON DIOXIDE,CO2 26.9 mmol/L (21.0-32.0); CHLORIDE,CL 104.0 mmol/L (98-107); CREATININE 2.63 mg/dL (0.55-1.02); EST CRCL DRUG DOSING (CG) 14.17 mL/min; ESTIMATED GFR 18.0 mL/min (>60); GLUCOSE RANDOM 130.0 mg/dL (74-100); POTASSIUM,K 4.7 mmol/L (3.5-5.1); SODIUM,NA 139.0 mmol/L (136-145)
[2025-03-30 10:19] LABS: MEAN PLATELET VOLUME 10.0 fL (6.0-10.0); PLATELET COUNT,PLT 207.0 K/uL (150-500); RED BLOOD CELL COUNT 4.05 M/uL (3.80-5.80); RED CELL DISTRIBUTION WIDTH 18.7 % (11.0-16.0); WHITE BLOOD CELL COUNT,WBC 4.9 K/uL (4.0-11.0)
[2025-03-30 10:35] LABS: APPEARANCE,URINE CLOUDY (CLEAR); GLUCOSE,URINE NEGATIVE (NEGATIVE); OCCULT BLOOD,URINE MODERATE (NEGATIVE)
[2025-03-30 10:41] LABS: A/G RATIO 0.8 (0.8-2.0); ALANINE AMINOTRANSFERASE,ALT 30.0 U/L (12-78); ASPARTATE AMNIOTRANSFERASE,AST 46.0 U/L (15-37); BILIRUBIN TOTAL 0.9 mg/dL (0.0-1.0); BLOOD UREA NITROGEN,BUN 30.0 mg/dL (8-26); CARBON DIOXIDE,CO2 23.0 mmol/L (21.0-32.0); CHLORIDE,CL 103.0 mmol/L (98-107); CREATININE 2.37 mg/dL (0.55-1.02); EST CRCL DRUG DOSING (CG) 15.72 mL/min; ESTIMATED GFR 21.0 mL/min (>60); GLUCOSE RANDOM 265.0 mg/dL (74-100); POTASSIUM,K 5.0 mmol/L (3.5-5.1); PROTEIN TOTAL,TP 6.6 g/dL (6.4-8.2); SODIUM,NA 139.0 mmol/L (136-145)
[2025-03-30 10:45] LABS: WBC CLUMPS,URINE MANY /HPF
[2025-03-31 09:05] LABS: BLOOD UREA NITROGEN,BUN 27.0 mg/dL (8-26); CARBON DIOXIDE,CO2 29.3 mmol/L (21.0-32.0); CHLORIDE,CL 106.0 mmol/L (98-107); CREATININE 2.2 mg/dL (0.55-1.02); EST CRCL DRUG DOSING (CG) 16.94 mL/min; ESTIMATED GFR 23.0 mL/min (>60); GLUCOSE RANDOM 177.0 mg/dL (74-100); POTASSIUM,K 5.0 mmol/L (3.5-5.1); SODIUM,NA 141.0 mmol/L (136-145)
[2025-04-01] MEDS: Insulin Glargine,Human Rec. Analog 100 Units/ML 3 ML Pen SUBCUT SCH ×2 (07:33→20:07)
[2025-04-01] MEDS ORDERED: Tuberculin, PPD 5 Units/0.1 ML 1 ML MDV IDERM SCH (20:00)
[2025-04-02 07:34] VITALS: BP 158/56; PULSE 89
[2025-04-02] MEDS: Insulin Glargine,Human Rec. Analog 100 Units/ML 3 ML Pen SUBCUT SCH (07:59)
== END 2025-04-02 11:21 | DRG 947 ==
LOC: LB.MS 15:22
PROVIDERS: ADMIT Family Medicine; ATTEND Family Medicine
PROC: 0T2BX0Z Change Drainage Device in Bladder, External Approach (ICD-10-PCS; principal; 2025-03-18)
DX: R53.81 Other malaise (principal); K72.00 Acute and subacute hepatic failure without coma; N17.9 Acute kidney failure, unspecified; N18.4 Chronic kidney disease, stage 4 (severe); I13.0 Hypertensive heart and chronic kidney disease with heart failure and stage 1 through stage 4 chronic kidney disease, or unspecified chronic kidney disease; Z68.41 Body mass index [BMI] 40.0-44.9, adult; Z66 Do not resuscitate; R33.9 Retention of urine, unspecified; L89.619 Pressure ulcer of right heel, unspecified stage; E11.22 Type 2 diabetes mellitus with diabetic chronic kidney disease; E03.9 Hypothyroidism, unspecified; S91.301A Unspecified open wound, right foot, initial encounter; B36.9 Superficial mycosis, unspecified; E11.65 Type 2 diabetes mellitus with hyperglycemia; I50.9 Heart failure, unspecified; I25.10 Atherosclerotic heart disease of native coronary artery without angina pectoris; K59.00 Constipation, unspecified; H54.7 Unspecified visual loss; M54.9 Dorsalgia, unspecified; G89.29 Other chronic pain; F32.A Depression, unspecified; E66.9 Obesity, unspecified; Z85.3 Personal history of malignant neoplasm of breast; Z85.42 Personal history of malignant neoplasm of other parts of uterus; Z88.8 Allergy status to other drugs, medicaments and biological substances; Z88.2 Allergy status to sulfonamides; Z88.0 Allergy status to penicillin; Z79.82 Long term (current) use of aspirin; Z79.899 Other long term (current) drug therapy; Z95.5 Presence of coronary angioplasty implant and graft; Z98.49 Cataract extraction status, unspecified eye; Z79.4 Long term (current) use of insulin; Z98.890 Other specified postprocedural states; Z98.891 History of uterine scar from previous surgery
CPT/HCPCS: 36415; 51702; 80048; 80053; 80076; 81001; 82140; 82947; 83735; 83880; 84132; 85025; 85027; 85610; 85730; 86580; 87086; 97110-GP; 97162-GP; 97165-GO; 97530-GO; 97530-GP; 97535-GO; 99306; 99309; 99316; A9270-GY; J1610; J1650; J1815-GY; J1939; J7030; P9047